=== PATIENT | female | born 1985 | race Caucasian/White ===

== ENCOUNTER 2020-08-31 06:04 | Outpatient (REF) | payer OTHER, SELFPAY | END 2020-08-31 06:05 | disposition home or self-care (01) | LOC: HO.HMGCLDS 06:04 | PROVIDERS: Visit Provider Internal Medicine | DX: Z20.828 Contact with and (suspected) exposure to other viral communicable diseases (principal) | CPT/HCPCS: C9803; U0003 ==

== ENCOUNTER 2020-11-16 06:12 | Outpatient (REF) | payer OTHER, SELFPAY ==
[2020-11-16 12:02] LABS: Free T4 (Free Thyroxine) 1.08 ng/dL (0.71-1.85); Thyroid Stimulating Hormone 2.65 uIU/mL (0.32-4.0)
== END 2020-11-16 06:13 | disposition home or self-care (01) ==
LOC: HO.HMGCLDS 06:12
PROVIDERS: PCP Internal Medicine; Visit Provider Internal Medicine
DX: E03.9 Hypothyroidism, unspecified (principal)
CPT/HCPCS: 36415; 84439; 84443

== ENCOUNTER 2021-05-22 14:23 | Outpatient (REF) | payer OTHER, SELFPAY ==
[2021-05-22 17:21] LABS: Free T4 (Free Thyroxine) 1.03 ng/dL (0.71-1.85); Thyroid Stimulating Hormone 1.15 uIU/mL (0.32-4.0)
== END 2021-05-22 14:24 | disposition home or self-care (01) ==
LOC: HO.HMGCLDS 14:23
PROVIDERS: PCP Internal Medicine; Visit Provider Internal Medicine
DX: E03.9 Hypothyroidism, unspecified (principal)
CPT/HCPCS: 36415; 84439; 84443

== ENCOUNTER 2021-10-09 07:53 | Outpatient (REF) | payer OTHER, SELFPAY ==
[2021-10-09 11:25] LABS: MANUAL DIFF FLAG NO
[2021-10-09 11:29] LABS: Basophils Absolute Auto 0.1 X10*3/uL (0.0-0.2); Basophils Percent Auto 0.8 % (0-2); Eosinophils Absolute Auto 0.3 X10*3/uL (0.0-0.4); Eosinophils Percent Auto 4.3 % (0-4); Hematocrit 37.9 % (37.0-47.0); Hemoglobin 12.5 g/dl (12.0-16.0); Imm Gran Abs Auto 0.01 X10*3/uL (0.00-0.03); Imm Gran Pct Auto 0.1 % (0.0-0.4); Lymphocytes Percent Auto 38.4 % (20-40); Mean Corpuscular Hemoglobin 29.3 pg (27.0-33.0); Mean Corpuscular Volume 88.8 fL (80.0-98.0); Mean Platelet Volume 10.2 fL (9.4-12.3); Monocytes Absolute Auto 0.4 X10*3/uL (0.1-1.2); Neutrophils Percent Auto 51.4 % (45-73); Platelet Count 370 X10*3/uL (160-400); Red Blood Count 4.27 X10*6/uL (4.20-5.50); Red Cell Distribution Width 12.6 % (11.0-16.0); White Blood Count 7.8 X10*3/uL (4.8-10.8)
[2021-10-09 12:00] LABS: Anion Gap 12 (12-20); Blood Urea Nitrogen 10 mg/dL (9-16); Calcium 9.2 mg/dL (8.4-10.2); Carbon Dioxide 24 mmol/L (22-29); Chloride 108 mmol/L (96-108); Cholesterol 182 mg/dL; Estimated Glomerular Filt Rate > 60; Glucose Fasting 84 mg/dL (60-99); HDL Cholesterol 78 mg/dL; LDL Cholesterol Calculated 73 mg/dl; Potassium 4.6 mmol/L (3.3-5.1); Sodium 139 mmol/L (135-145); Triglycerides 155 mg/dL
[2021-10-09 12:08] LABS: Free T4 (Free Thyroxine) 0.95 ng/dL (0.71-1.85); Thyroid Stimulating Hormone 1.76 uIU/mL (0.32-4.0); Vitamin D 25-OH Total 29.7 ng/mL (>30)
== END 2021-10-09 07:54 | disposition home or self-care (01) ==
LOC: HO.HMGCLDS 07:53
PROVIDERS: Physician Assistant Medical; PCP Internal Medicine; Visit Provider Internal Medicine
DX: Z00.01 Encounter for general adult medical examination with abnormal findings (principal); J01.90 Acute sinusitis, unspecified; E03.9 Hypothyroidism, unspecified; Z20.822 Contact with and (suspected) exposure to COVID-19
CPT/HCPCS: 36415; 80048; 80061; 82306; 84439; 84443; 85025; 87071; U0003; U0005

== ENCOUNTER 2022-09-13 11:51 | Outpatient (REF) | payer OTHER, SELFPAY ==
[2022-09-13 12:03] LABS: Binax Internal Control QC Valid; Binax Now Covid-19 Ag Positive (Negative); Binax Performed by: HO.BONILM
== END 2022-09-13 11:52 | disposition home or self-care (01) ==
LOC: HO.HMGCLDS 11:51
PROVIDERS: PCP Internal Medicine; Visit Provider Physician Assistant
DX: Z20.822 Contact with and (suspected) exposure to COVID-19 (principal)
CPT/HCPCS: 87811; C9803

== ENCOUNTER 2023-04-09 15:14 | Outpatient (AMB) | payer OTHER, SELFPAY ==
--- NOTE | 2023-04-09 15:43 | MHC.PC.OV ---
Vital Signs 04/09/23 15:47 Height 5 ft 6 in Weight 223 lb BMI 36.0 BP 100/66 Blood Pressure Location Rt brachial Position Sitting Pulse 71 Pulse Source Pulse Oximeter Pulse Oximetry (%) 99 Oxygen Delivery Method Room Air Intake Visit Reasons: Med review Intake Note: Pt is here today to request rx for cetrizine: Pt is also c/o sinus pressure Allergies peanut Allergy (Unknown, Verified 07/03/23 08:56) Anaphylaxis tree nut Allergy (Unknown, Verified 07/03/23 08:56) Anaphylaxis Medication List - Last Reconciled 04/09/23 by Nery Ho MD cabergoline 2.5 mg PO QWEEK cetirizine 10 mg PO BEDTIME PRN cholecalciferol (vitamin D3) 50 mcg PO DAILY desogestrel-ethinyl estradiol 0.15-0.03 mg 1 tab PO DAILY folic acid 1 mg PO DAILY levothyroxine 75 mcg PO QAM methotrexate sodium 15 mg PO QWEEK multivitamin 1 tab PO DAILY Saccharomyces boulardii (Daily Probiotic (S. boulardii)) 250 mg PO BID vitamin B complex (B Complex-Vitamin B12 tablet) 1 tab PO DAILY Tobacco use date assessed: 04/09/23 Dental Screening Dental Screen Date: 04/09/23 Did you have a dental visit in the last 12 months?: Yes Did you have a dental problem in the last 6 months where you did not have access to dental care?: No Was dental information given to patient?: Patient has dentist HPI Med review HPI Details 37-year-old lady here today complaining of frontal headaches and nasal congestion with pressure over sinuses mainly on both maxillary areas. She currently takes cetirizine 10 mg at bedtime as needed which has been helping, but only temporarily. Denies any fever, chills, or shortness of breath. She also has acquired hypothyroidism, on levothyroxine 75 mcg daily in a.m., due for follow-up. Patient states she has been feeling well on current dose [facility] Medical History (Updated 07/16/23 @ 18:19 by Nery Ho MD) Uveitis of left eye Pituitary adenoma Anaphylactic reaction due to tree nuts and seeds Environmental and seasonal allergies Nut allergy Acquired hypothyroidism Acute anterior uveitis of left eye Ankylosing spondylitis Spondyloarthropathy HLA B27 positive Acute sinusitis with coexisting condition, need prophylactic treatment Surgical History History of left cataract surgery Family History Father Essential hypertension Bipolar disorder Mental health disorder Mother Essential hypertension Rheumatoid arthritis Cholelithiasis Maternal Grandmother Breast cancer Brother Asthma Maternal Grandfather Glioblastoma Brain cancer Paternal Grandfather Colon cancer Diabetes Social History Housing: Apartment Alcohol intake: current Patient Tobacco Use Status: Never used Tobacco e-Cigarette/Vaping Use: Never Used service: No Current occupational status: employed Cognitive needs: No Hearing needs: No Vision needs: Yes Questionnaire PHQ-9 Over the last 2 weeks, how often have you been bothered by any of the following problems? 1. Little interest or pleasure in doing things: not at all 2. Feeling down, depressed, or hopeless: not at all 3. Trouble falling or staying asleep, or sleeping too much: not at all 4. Feeling tired or having little energy: not at all 5. Poor appetite or overeating: not at all 6. Feeling bad about yourself - or that you are a failure or have let yourself or your family down: not at all 7. Trouble concentrating on things, such as reading the newspaper or watching television: not at all 8. Moving or speaking so slowly that other people could have noticed. Or the opposite - being so fidgety or restless that you have been moving around a lot more than usual: not at all 9. Thoughts that you would be better off or of hurting yourself in some way: not at all Total score: 0 Depression Screening Interpretation: Negative 26744 - PHQ-9 Billing: Yes Source: Developed by Drs. Dmitry Cruz, Carli Maravilla, Baldemar Gamez and colleagues, with an educational glen from [employer]. Thrive Questionnaire Date Thrive assessed: 04/09/23 I am a: Patient What is your living situation today?: I have a steady place to live Within the past 12 months, did the food you bought not last and you didn't have the money to get more?: Never true Within the past 12 months, did you worry whether your food would run out before you got money to buy more?: Never true Do you have trouble paying for medicines?: No Do you have trouble getting transportation to medical appointments?: No Do you have trouble paying your heating and electricity bill?: No Do you have trouble taking care of your child, family member or friend?: No Do you have trouble with day-to-day activities such as bathing, preparing meals, shopping, managing finances, etc.?: No Are you currently unemployed and looking for a job?: No Are you interested in more education?: No Please select the resources that you would like help with: None AUDIT C Alcohol Use Questionnaire (AUDIT-C) 1. How often do you have a drink containing alcohol?: Monthly or less 2. How many drinks containing alcohol do you have on a typical day when you are drinking?: 1 or 2 3. How often do you have six or more drinks on one occasion?: Never Total Score: 1 RACHEL-7 AMB Questionnaire RACHEL-7 Date RACHEL - 7 assessed: 04/09/23 Feeling nervous, anxious, or on edge: 1 = Several days Not being able to stop or control worryin = Several days Worrying too much about different things: 2 = More than half the days Trouble relaxin = More than half the days Being so restless that it is hard to sit still: 2 = More than half the days Becoming easily annoyed or irritable: 1 = Several days Feeling afraid as if something awful might happen: 1 = Several days Total RACHEL-7 score (0-4 normal; 5-9 mild; 10-14 moderate; 15-21 severe): 10 Source: Developed by Drs. Dmitry Cruz, Carli Maravilla, Baldemar Gamez and colleagues, with an educational glen from [employer]. RACHEL-7 Assessment Billing RACHEL-7 Assessment Tool: RACHEL-7 Assessment 98498 Review of Systems Const Reports as per HPI and Reports no additional complaints ENT Denies change in voice, Denies dysphagia, Denies dizziness, Denies hoarseness and Denies epistaxis Card Reports no additional complaints Resp Reports no additional complaints GI Denies dysphagia Musc Reports no additional complaints Neuro Denies dizziness Endo Reports no additional complaints Physical exam (Primary Care) Vital Signs: Last Vital Signs Pulse 71 04/09/23 15:47 BP 100/66 04/09/23 15:47 Pulse Ox 99 04/09/23 15:47 Oxygen Delivery Method Room Air 04/09/23 15:47 BMI result Body Mass Index 36.0 Tobacco/Smoking Status: Tobacco use Status Tobacco use date assessed 04/09/23 04/09/23 15:54 Patient Tobacco Use Status Never used Tobacco 04/09/23 15:44 e-Cigarette/Vaping Use Never Used 04/09/23 15:44 PHQ-9: PHQ-9 Score PHQ-9: Total score 0 04/09/23 16:24 Depression Screening Interpretation: Negative Thrive Assessment: Date of Thrive Assessment Date Thrive assessed 04/09/23 04/09/23 15:54 Const Other: Alert oriented x3, no acute distress noted, ambulatory normal gait HENMT General nose exam: Normal external nose present and Abnormal mucous membranes and turbinates present erythematous bilateral Face and sinus: Yes sinus tenderness (Maxillary area) Eyes General: appearance normal, both eyes and all related structures Neck Other: Supple with no lymphadenopathy, thyroid gland nonpalpable Resp Auscultation: clear to auscultation bilaterally Cardio Other: S1-S2 present regular rate and rhythm Assessment and Plan Assessment & Plan (1) Sinusitis, acute: Code(s): J01.90 - Acute sinusitis, unspecified Qualifiers: Sinusitis location: maxillary Recurrence: non-recurrent Qualified Code(s): J01.00 - Acute maxillary sinusitis, unspecified Plan: Prescription sent for azithromycin , to take as directed (2) Environmental and seasonal allergies: Code(s): J30.89 - Other allergic rhinitis Plan: Continue cetirizine (3) Acquired hypothyroidism: Code(s): E03.9 - Hypothyroidism, unspecified Plan: Check TSH and free T4, in the meantime continue with current dose of levothyroxine Orders: Orders Thyroid Stimulating Hormone 04/09/23 E03.9 - Hypothyroidism, unspecified Free T4 (Free Thyroxine) 3 Months E03.9 - Hypothyroidism, unspecified Medications: New azithromycin For 250 mg dose pack: take 500 mg today (day 1), then 250 mg for 4 days (days 2-5) PO 6 tabs 0RF Refilled cetirizine 10 mg PO BEDTIME PRN 90 tabs 2RF for allergies Coding Level of Care Code Est Pt Level 3 (92062) Diagnoses Acute non-recurrent maxillary sinusitis J01.00 Sinusitis location: maxillary Recurrence: non-recurrent Environmental and seasonal allergies J30.89 Acquired hypothyroidism E03.9 Additional Codes RACHEL-7 Assessment Billing - RACHEL-7 Assessment Tool: RACHEL-7 Assessment 48820 ([id number])
[2023-04-09 15:47] VITALS: BP 100/66; PULSE 71; O2SAT 99; BMI 36.0
== END 2023-04-09 16:34 | disposition home or self-care (01) ==
PROVIDERS: PCP Internal Medicine; Visit Provider Internal Medicine
DX: J01.00 Acute maxillary sinusitis, unspecified (principal); J30.89 Other allergic rhinitis; E03.9 Hypothyroidism, unspecified
CPT/HCPCS: 99213

== ENCOUNTER 2023-04-17 08:04 | Outpatient (REF) | payer OTHER, SELFPAY ==
[2023-04-17 12:42] LABS: Thyroid Stimulating Hormone 1.57 uIU/mL (0.32-4.0)
== END 2023-04-17 08:05 | disposition home or self-care (01) ==
LOC: HO.HMGCLDS 08:04
PROVIDERS: PCP Internal Medicine; Visit Provider Internal Medicine
DX: E03.9 Hypothyroidism, unspecified (principal)
CPT/HCPCS: 36415; 84443

== ENCOUNTER 2023-07-03 08:20 | Outpatient (AMB) | payer OTHER, SELFPAY ==
--- NOTE | 2023-07-03 08:29 | MHC.PC.OV ---
Vital Signs 07/03/23 08:33 Height 5 ft 6 in Weight 229 lb BMI 37.0 BP 118/78 Blood Pressure Location Lt brachial Position Sitting Pulse 76 Pulse Source Pulse Oximeter Pulse Oximetry (%) 98 Oxygen Delivery Method Room Air Intake Visit Reasons: Physical exam Intake Note: patient is here today for her PE Is last menstrual period known: Yes Allergies peanut Allergy (Unknown, Verified 07/03/23 08:56) Anaphylaxis tree nut Allergy (Unknown, Verified 07/03/23 08:56) Anaphylaxis Medication List - Last Reconciled 07/03/23 by Nery Ho MD cabergoline 2.5 mg PO QWEEK cetirizine 10 mg PO BEDTIME PRN cholecalciferol (vitamin D3) 50 mcg PO DAILY desogestrel-ethinyl estradiol 0.15-0.03 mg 1 tab PO DAILY folic acid 1 mg PO DAILY levothyroxine 75 mcg PO QAM methotrexate sodium 15 mg PO QWEEK multivitamin 1 tab PO DAILY Saccharomyces boulardii (Daily Probiotic (S. boulardii)) 250 mg PO BID Tobacco use date assessed: 07/03/23 Dental Screening Dental Screen Date: 07/03/23 Did you have a dental visit in the last 12 months?: Yes Did you have a dental problem in the last 6 months where you did not have access to dental care?: No Was dental information given to patient?: Patient has dentist HPI Physical exam HPI Details 37-year-old lady here today for physical exam. She goes to see [facility], for her routine Pap and pelvic exam, had it done earlier this year with normal findings. [facility] Medical History (Updated 07/03/23 @ 09:18 by Nery Ho MD) Uveitis of left eye Pituitary adenoma Anaphylactic reaction due to tree nuts and seeds Environmental and seasonal allergies Nut allergy Acquired hypothyroidism Acute anterior uveitis of left eye Ankylosing spondylitis Spondyloarthropathy HLA B27 positive Acute sinusitis with coexisting condition, need prophylactic treatment Surgical History History of left cataract surgery Family History (Updated 07/03/23 @ 09:25 by Nery Ho MD) Father Essential hypertension Bipolar disorder Mental health disorder Mother Essential hypertension Rheumatoid arthritis Cholelithiasis Sister Asthma Maternal Grandmother Breast cancer Social History Housing: Apartment Alcohol intake: current Patient Tobacco Use Status: Never used Tobacco e-Cigarette/Vaping Use: Never Used service: No Current occupational status: employed Cognitive needs: No Hearing needs: No Vision needs: Yes Questionnaire PHQ-9 Over the last 2 weeks, how often have you been bothered by any of the following problems? 1. Little interest or pleasure in doing things: not at all 2. Feeling down, depressed, or hopeless: not at all 3. Trouble falling or staying asleep, or sleeping too much: several days 4. Feeling tired or having little energy: more than half the days 5. Poor appetite or overeating: several days 6. Feeling bad about yourself - or that you are a failure or have let yourself or your family down: several days 7. Trouble concentrating on things, such as reading the newspaper or watching television: not at all 8. Moving or speaking so slowly that other people could have noticed. Or the opposite - being so fidgety or restless that you have been moving around a lot more than usual: not at all 9. Thoughts that you would be better off or of hurting yourself in some way: not at all Total score: 5 Depression Screening Interpretation: Negative 31975 - PHQ-9 Billing: Yes Source: Developed by Drs. Dmitry Cruz, Carli Maravilla, Baldemar Gamez and colleagues, with an educational glen from [employer]. Thrive Questionnaire Date Thrive assessed: 07/03/23 I am a: Patient What is your living situation today?: I have a steady place to live Within the past 12 months, did the food you bought not last and you didn't have the money to get more?: Never true Within the past 12 months, did you worry whether your food would run out before you got money to buy more?: Never true Do you have trouble paying for medicines?: No Do you have trouble getting transportation to medical appointments?: No Do you have trouble paying your heating and electricity bill?: No Do you have trouble taking care of your child, family member or friend?: No Do you have trouble with day-to-day activities such as bathing, preparing meals, shopping, managing finances, etc.?: No Are you currently unemployed and looking for a job?: No Are you interested in more education?: No AUDIT C Alcohol Use Questionnaire (AUDIT-C) 1. How often do you have a drink containing alcohol?: Monthly or less 2. How many drinks containing alcohol do you have on a typical day when you are drinking?: 1 or 2 3. How often do you have six or more drinks on one occasion?: Never Total Score: 1 RACHEL-7 AMB Questionnaire RACHEL-7 Date RACHEL - 7 assessed: 07/03/23 Feeling nervous, anxious, or on edge: 1 = Several days Not being able to stop or control worryin = Not at all Worrying too much about different things: 0 = Not at all Trouble relaxin = More than half the days Being so restless that it is hard to sit still: 1 = Several days Becoming easily annoyed or irritable: 1 = Several days Feeling afraid as if something awful might happen: 0 = Not at all Total RACHEL-7 score (0-4 normal; 5-9 mild; 10-14 moderate; 15-21 severe): 5 Source: Developed by Drs. Dmitry Cruz, Carli Maravilla, Baldemar Gamez and colleagues, with an educational glen from [employer]. RACHEL-7 Assessment Billing RACHEL-7 Assessment Tool: RACHEL-7 Assessment 07748 Review of Systems Const Denies body aches, Denies chills, Denies difficulty sleeping, Denies fatigue, Denies headache(s), Denies lethargy and Denies malaise Eyes Details: followed by Dr. Richardson Reports no additional complaints ENT Reports Normal hearing present, Denies dizziness, Denies headache(s), Denies post nasal drip, Denies sinus pain and Denies sore throat Card Denies chest pain and Denies irregular heart rhythm Resp Denies chest congestion, Denies cough, Denies pain on inspiration and Denies wheezing GI Denies change in bowel habits and Denies heartburn Denies abnormal menses Musc Reports myalgias, Reports arthralgias and Denies joint swelling Skin/Breast Denies breast swelling, Denies breast pain, Denies breast mass and Denies rash Neuro Reports Normal hearing present, Denies dizziness, Denies headache(s) and Denies Sensory deficit (Neuro) Psych Reports no additional complaints Endo Denies fatigue Billy/Lymph Reports no additional complaints Aller/Immun Denies wheezing Physical exam (Primary Care) Vital Signs: Last Vital Signs Pulse 76 07/03/23 08:33 BP 118/78 07/03/23 08:33 Pulse Ox 98 07/03/23 08:33 Oxygen Delivery Method Room Air 07/03/23 08:33 BMI result Body Mass Index 37.0 Tobacco/Smoking Status: Tobacco use Status Tobacco use date assessed 07/03/23 07/03/23 08:30 Patient Tobacco Use Status Never used Tobacco 07/03/23 08:30 e-Cigarette/Vaping Use Never Used 07/03/23 08:30 PHQ-9: PHQ-9 Score PHQ-9: Total score 5 07/03/23 09:27 Depression Screening Interpretation: Negative Thrive Assessment: Date of Thrive Assessment Date Thrive assessed 07/03/23 07/03/23 08:50 Const General: cooperative, no acute distress and alert Orientation/consciousness: patient oriented x3 HENMT Head: Yes normal to inspection, Yes normocephalic and Yes atraumatic Ears: hearing grossly normal bilaterally, external ears normal, TM's normal bilaterally and EAC's normal General nose exam: Normal external nose present, Normal nasal mucous membranes and turbinates present and No nasal discharge present Face and sinus: Yes normal facial exam, Yes sinuses nontender and Yes face symmetric Mouth: Normal oral and palatal mucosa present, tongue normal, oropharynx normal and moist mucous membranes Eyes Conjunctivae: conjunctivae normal Sclerae: sclerae normal Pupils: Equal, round and reactive pupils present EOM: EOMs intact bilaterally Neck Neck: Yes full ROM and Yes no lymphadenopathy Thyroid: Thyroid normal Carotids: normal carotid upstroke Chest Chest palpation & inspection: normal inspection of the chest Breast/axilla palpation: normal palpation of the breasts Resp Effort & Inspection: normal respiratory effort and able to speak in complete sentences Auscultation: clear to auscultation bilaterally Cardio Jugular venous distension: no JVD Rate: regular rate Rhythm: regular rhythm Heart sounds: S1 normal heart sound present and S2 normal heart sound present GI Inspection: Yes normal to inspection Palpation (GI): Soft to palpation, nontender, no guarding and no masses Auscultation: normal bowel sounds General: Yes no CVA tenderness Back/Spine/Pelvis Back: no CVA tenderness and No back tenderness Skin General skin exam: no rashes or lesions noted Neuro General: patient oriented x3, gait normal, moves all extremities, no focal motor deficits and CN's II-XI intact bilaterally Cranial nerves: Yes Equal, round and reactive pupils present and Yes Normal hearing present Cognition (Neuro): normal cognition Gait exam (Neuro): Normal gait present Motor exam (neuro): 5/5 motor strength present throughout Sensory Exam: No Sensory deficit (Neuro) Extrem General: Yes normal to inspection, Yes full ROM, Yes no pedal edema and Yes normal gait Psych Appearance: grossly normal and well kempt Mental Status: mental status grossly normal Speech and movement: Normal speech and movement present Affect: normal affect Thought process: Normal thought process present Assessment and Plan Assessment & Plan (1) Annual visit for general adult medical examination with abnormal findings: Code(s): Z00.01 - Encounter for general adult medical examination with abnormal findings Plan: Will check appropriate labs. Recommended dental visit every 6 months and regular eye exams, at least every 2 years, currently being followed by Dr. Richardson for her uveitis Take adequate calcium in diet and vitamin-D 3 at 2000 IU per cap once a day, in addition to weight-bearing exercises to help maintain good muscle tone and weight control. Instructed to do self-breast exam, and recommended to get yearly mammogram, starting at age 40. Reminded to get her COVID booster and flu shot. (2) Anaphylactic reaction due to tree nuts and seeds: Code(s): T78.05XA - Anaphylactic reaction due to tree nuts and seeds, initial encounter (3) Pituitary adenoma: Code(s): D35.2 - Benign neoplasm of pituitary gland Plan: Currently on cabergoline, currently asymptomatic, referred to a new quality control microbiologist for follow-up, as her [facility] endocrine specialist has retired (4) HLA B27 positive: Comment: Followed by Dr. Mittal Code(s): Z15.89 - Genetic susceptibility to other disease Plan: Followed by Dr. Mittal (5) Ankylosing spondylitis: Comment: Followed by Dr. mittal Code(s): M45.9 - Ankylosing spondylitis of unspecified sites in spine Plan: Currently on methotrexate 15 mg weekly (6) Acquired hypothyroidism: Code(s): E03.9 - Hypothyroidism, unspecified Plan: Will check free T4 and TSH level, in the meantime continue levothyroxine 75 mcg daily in a.m. (7) Nut allergy: Comment: Seen and evaluated by surgical instrument maker Code(s): Z91.018 - Allergy to other foods Plan: Prescription sent for epinephrine (8) Environmental and seasonal allergies: Code(s): J30.89 - Other allergic rhinitis Plan: Takes cetirizine 10 mg bedtime as needed Orders: Orders Lipid Panel 07/03/23 D35.2 - Benign neoplasm of pituitary gland, E03.9 - Hypothyroidism, unspecified, H20.9 - Unspecified iridocyclitis, J30.89 - Other allergic rhinitis, M45.9 - Ankylosing spondylitis of unspecified sites in spine, M47.819 - Spondylosis without myelopathy or radiculopathy, site unspecified, T78.05XA - Anaphylactic reaction due to tree nuts and seeds, initial encounter, Z00.01 - Encounter for general adult medical examination with abnormal findings, Z15.89 - Genetic susceptibility to other disease, Z91.018 - Allergy to other foods Vitamin D 25-OH Total 07/03/23 D35.2 - Benign neoplasm of pituitary gland, E03.9 - Hypothyroidism, unspecified, H20.9 - Unspecified iridocyclitis, J30.89 - Other allergic rhinitis, M45.9 - Ankylosing spondylitis of unspecified sites in spine, M47.819 - Spondylosis without myelopathy or radiculopathy, site unspecified, T78.05XA - Anaphylactic reaction due to tree nuts and seeds, initial encounter, Z00.01 - Encounter for general adult medical examination with abnormal findings, Z15.89 - Genetic susceptibility to other disease, Z91.018 - Allergy to other foods Free T4 (Free Thyroxine) 3 Months D35.2 - Benign neoplasm of pituitary gland, E03.9 - Hypothyroidism, unspecified, H20.9 - Unspecified iridocyclitis, J30.89 - Other allergic rhinitis, M45.9 - Ankylosing spondylitis of unspecified sites in spine, M47.819 - Spondylosis without myelopathy or radiculopathy, site unspecified, T78.05XA - Anaphylactic reaction due to tree nuts and seeds, initial encounter, Z00.01 - Encounter for general adult medical examination with abnormal findings, Z15.89 - Genetic susceptibility to other disease, Z91.018 - Allergy to other foods Complete Blood Count Auto Diff 07/03/23 D35.2 - Benign neoplasm of pituitary gland, E03.9 - Hypothyroidism, unspecified, H20.9 - Unspecified iridocyclitis, J30.89 - Other allergic rhinitis, M45.9 - Ankylosing spondylitis of unspecified sites in spine, M47.819 - Spondylosis without myelopathy or radiculopathy, site unspecified, T78.05XA - Anaphylactic reaction due to tree nuts and seeds, initial encounter, Z00.01 - Encounter for general adult medical examination with abnormal findings, Z15.89 - Genetic susceptibility to other disease, Z91.018 - Allergy to other foods UA CC w/rflx Micro + Cult 07/03/23 D35.2 - Benign neoplasm of pituitary gland, E03.9 - Hypothyroidism, unspecified, H20.9 - Unspecified iridocyclitis, J30.89 - Other allergic rhinitis, M45.9 - Ankylosing spondylitis of unspecified sites in spine, M47.819 - Spondylosis without myelopathy or radiculopathy, site unspecified, T78.05XA - Anaphylactic reaction due to tree nuts and seeds, initial encounter, Z00.01 - Encounter for general adult medical examination with abnormal findings, Z15.89 - Genetic susceptibility to other disease, Z91.018 - Allergy to other foods Thyroid Stimulating Hormone 07/03/23 D35.2 - Benign neoplasm of pituitary gland, E03.9 - Hypothyroidism, unspecified, H20.9 - Unspecified iridocyclitis, J30.89 - Other allergic rhinitis, M45.9 - Ankylosing spondylitis of unspecified sites in spine, M47.819 - Spondylosis without myelopathy or radiculopathy, site unspecified, T78.05XA - Anaphylactic reaction due to tree nuts and seeds, initial encounter, Z00.01 - Encounter for general adult medical examination with abnormal findings, Z15.89 - Genetic susceptibility to other disease, Z91.018 - Allergy to other foods Comprehensive [place]. Panel Fast 07/03/23 D35.2 - Benign neoplasm of pituitary gland, E03.9 - Hypothyroidism, unspecified, H20.9 - Unspecified iridocyclitis, J30.89 - Other allergic rhinitis, M45.9 - Ankylosing spondylitis of unspecified sites in spine, M47.819 - Spondylosis without myelopathy or radiculopathy, site unspecified, T78.05XA - Anaphylactic reaction due to tree nuts and seeds, initial encounter, Z00.01 - Encounter for general adult medical examination with abnormal findings, Z15.89 - Genetic susceptibility to other disease, Z91.018 - Allergy to other foods Referrals Endocrinology Referral D35.2 - Benign neoplasm of pituitary gland, E03.9 - Hypothyroidism, unspecified Medications: New epinephrine (EpiPen 2-[place]) 0.3 mg (0.3 mL) IM Q4H PRN 2 ea 0RF anaphylaxis T78.05XA - Anaphylactic reaction due to tree nuts and seeds, initial encounter, Z91.018 - Allergy to other foods Coding Level of Care Code Est Pt Prev Care 18-39y(14222) Diagnoses Annual visit for general adult medical examination with abnormal findings Z00.01 Anaphylactic reaction due to tree nuts and seeds T78.05XA Pituitary adenoma D35.2 HLA B27 positive Z15.89 Ankylosing spondylitis M45.9 Acquired hypothyroidism E03.9 Nut allergy Z91.018 Environmental and seasonal allergies J30.89 Additional Codes RACHEL-7 Assessment Billing - RACHEL-7 Assessment Tool: RACHEL-7 Assessment 71592 ([id number])
[2023-07-03 08:33] VITALS: BP 118/78; PULSE 76; O2SAT 98; BMI 37.0
== END 2023-07-03 09:28 | disposition home or self-care (01) ==
PROVIDERS: Visit Provider Internal Medicine
DX: Z00.01 Encounter for general adult medical examination with abnormal findings (principal); D35.2 Benign neoplasm of pituitary gland; M45.9 Ankylosing spondylitis of unspecified sites in spine; E03.9 Hypothyroidism, unspecified; Z91.018 Allergy to other foods; T78.05XA Anaphylactic reaction due to tree nuts and seeds, initial encounter; Z15.89 Genetic susceptibility to other disease; J30.89 Other allergic rhinitis
CPT/HCPCS: 99395

== ENCOUNTER 2023-10-16 07:37 | Outpatient (REF) | payer OTHER, SELFPAY ==
[2023-10-16 11:21] LABS: Appearance Urine Clear; Color Urine Yellow; Glucose Urine UA Negative (Negative); Leukocyte Esterase Urine Trace (Negative); Nitrite Urine Negative (Negative); Specific Gravity - Urine 1.025 (1.005-1.025); UMIC TRIGGER UACC YES; Urine Blood Moderate (2+) (Negative); Urine Ketones Negative (Negative); Urine Protein Negative (Neg-Trace)
[2023-10-16 11:44] LABS: Bacteria Urine None Seen (None Seen); Hyaline Casts Urine 0-2 /LPF (0-2); Squamous Epithelial Cell Urine 0-2 /HPF (0-2); UACC Culture Trigger YES
== END 2023-10-16 07:38 | disposition home or self-care (01) ==
LOC: HO.HMGCLDS 07:37
PROVIDERS: PCP Internal Medicine; Visit Provider Internal Medicine
DX: Z00.01 Encounter for general adult medical examination with abnormal findings (principal); D35.2 Benign neoplasm of pituitary gland; T78.05XA Anaphylactic reaction due to tree nuts and seeds, initial encounter; Z15.89 Genetic susceptibility to other disease; M47.819 Spondylosis without myelopathy or radiculopathy, site unspecified; M45.9 Ankylosing spondylitis of unspecified sites in spine; E03.9 Hypothyroidism, unspecified; Z91.018 Allergy to other foods; J30.89 Other allergic rhinitis; H20.9 Unspecified iridocyclitis; R82.90 Unspecified abnormal findings in urine
CPT/HCPCS: 36415; 80053; 80061; 81001; 82306; 84439; 84443; 85025; 87086

== ENCOUNTER → 2024-02-29 16:53 | Outpatient (AMB) | payer OTHER, SELFPAY ==
--- NOTE | 2024-02-29 13:30 | A.OFFPC_ITS ---
Intake Visit Reasons: f/u anxiety & depression andriod [phone] Allergies peanut Allergy (Unknown, Verified 02/29/24 13:31) Anaphylaxis tree nut Allergy (Unknown, Verified 02/29/24 13:31) Anaphylaxis Tobacco use date assessed: 02/29/24 Dental Screening Dental Screen Date: 07/03/23 [facility] Medical History (Updated 07/16/23 @ 18:19 by Nery Ho MD) Uveitis of left eye Pituitary adenoma Anaphylactic reaction due to tree nuts and seeds Environmental and seasonal allergies Nut allergy Acquired hypothyroidism Acute anterior uveitis of left eye Ankylosing spondylitis Spondyloarthropathy HLA B27 positive Acute sinusitis with coexisting condition, need prophylactic treatment Surgical History History of left cataract surgery Family History Father Essential hypertension Bipolar disorder Mental health disorder Mother Essential hypertension Rheumatoid arthritis Cholelithiasis Maternal Grandmother Breast cancer Brother Asthma Maternal Grandfather Glioblastoma Brain cancer Paternal Grandfather Colon cancer Diabetes Social History Housing: Apartment Alcohol intake: current Patient Tobacco Use Status: Never used Tobacco e-Cigarette/Vaping Use: Never Used service: No Current occupational status: employed Cognitive needs: No Hearing needs: No Vision needs: Yes Questionnaire Thrive Questionnaire Date Thrive assessed: 07/03/23 RACHEL-7 AMB Questionnaire RACHEL-7 Date RACHEL - 7 assessed: 07/03/23 Source: Developed by Drs. Dmitry Cruz, Carli Maravilla, Baldemar Gamez and colleagues, with an educational glen from [employer]. Physical exam (Primary Care) Tobacco/Smoking Status: Tobacco use Status Tobacco use date assessed 07/03/23 07/03/23 08:30 Patient Tobacco Use Status Never used Tobacco 07/03/23 08:30 e-Cigarette/Vaping Use Never Used 07/03/23 08:30 Thrive Assessment: Date of Thrive Assessment Date Thrive assessed 07/03/23 07/03/23 08:50 Coding
--- NOTE | 2024-02-29 16:56 | MHC.PC.OV ---
Intake Visit Reasons: f/u anxiety & depression andriod [phone] Allergies peanut Allergy (Unknown, Verified 02/29/24 16:56) Anaphylaxis tree nut Allergy (Unknown, Verified 02/29/24 16:56) Anaphylaxis Tobacco use date assessed: 02/29/24 Dental Screening Dental Screen Date: 02/29/24 Did you have a dental visit in the last 12 months?: Yes Did you have a dental problem in the last 6 months where you did not have access to dental care?: No Was dental information given to patient?: Patient has dentist [facility] Medical History (Updated 07/16/23 @ 18:19 by Nery Ho MD) Uveitis of left eye Pituitary adenoma Anaphylactic reaction due to tree nuts and seeds Environmental and seasonal allergies Nut allergy Acquired hypothyroidism Acute anterior uveitis of left eye Ankylosing spondylitis Spondyloarthropathy HLA B27 positive Acute sinusitis with coexisting condition, need prophylactic treatment Surgical History History of left cataract surgery Family History Father Essential hypertension Bipolar disorder Mental health disorder Mother Essential hypertension Rheumatoid arthritis Cholelithiasis Maternal Grandmother Breast cancer Brother Asthma Maternal Grandfather Glioblastoma Brain cancer Paternal Grandfather Colon cancer Diabetes Social History Housing: Apartment Alcohol intake: current Patient Tobacco Use Status: Never used Tobacco e-Cigarette/Vaping Use: Never Used service: No Current occupational status: employed Cognitive needs: No Hearing needs: No Vision needs: Yes Questionnaire PHQ-9 Over the last 2 weeks, how often have you been bothered by any of the following problems? 1. Little interest or pleasure in doing things: more than half the days 2. Feeling down, depressed, or hopeless: several days 3. Trouble falling or staying asleep, or sleeping too much: nearly every day 4. Feeling tired or having little energy: nearly every day 5. Poor appetite or overeating: more than half the days 6. Feeling bad about yourself - or that you are a failure or have let yourself or your family down: several days 7. Trouble concentrating on things, such as reading the newspaper or watching television: not at all 8. Moving or speaking so slowly that other people could have noticed. Or the opposite - being so fidgety or restless that you have been moving around a lot more than usual: not at all 9. Thoughts that you would be better off or of hurting yourself in some way: not at all Total score: 12 Depression Screening Interpretation: Positive Depression Screening Done: Yes 05053 - PHQ-9 Billing: Yes Source: Developed by Drs. Dmitry Cruz, Carli Maravilla, Baldemar Gamez and colleagues, with an educational glen from [employer]. Thrive Questionnaire Date Thrive assessed: 02/29/24 I am a: Patient What is your living situation today?: I have a steady place to live Within the past 12 months, did the food you bought not last and you didn't have the money to get more?: Never true Within the past 12 months, did you worry whether your food would run out before you got money to buy more?: Never true Do you have trouble paying for medicines?: No Do you have trouble getting transportation to medical appointments?: No Do you have trouble paying your heating and electricity bill?: No Do you have trouble taking care of your child, family member or friend?: No Do you have trouble with day-to-day activities such as bathing, preparing meals, shopping, managing finances, etc.?: No Are you currently unemployed and looking for a job?: No Are you interested in more education?: No Please select the resources that you would like help with: None Currently or been in a relationship where the following occur: no concerns reported THRIVE Score: 0 AUDIT C Alcohol Use Questionnaire (AUDIT-C) 1. How often do you have a drink containing alcohol?: Never 3. How often do you have six or more drinks on one occasion?: Never Total Score: 0 Score Reviewed/Action Taken: Yes RACHEL-7 AMB Questionnaire RACHEL-7 Date RACHEL - 7 assessed: 02/29/24 Feeling nervous, anxious, or on edge: 1 = Several days Not being able to stop or control worryin = Not at all Worrying too much about different things: 0 = Not at all Trouble relaxin = Several days Being so restless that it is hard to sit still: 0 = Not at all Becoming easily annoyed or irritable: 1 = Several days Feeling afraid as if something awful might happen: 0 = Not at all Total RACHEL-7 score (0-4 normal; 5-9 mild; 10-14 moderate; 15-21 severe): 3 Source: Developed by Drs. Dmitry Cruz, Carli Maravilla, Baldemar Gamez and colleagues, with an educational glen from [employer]. RACHEL-7 Assessment Billing RACHEL-7 Assessment Tool: RACHEL-7 Assessment 47160 Physical exam (Primary Care) Tobacco/Smoking Status: Tobacco use Status Tobacco use date assessed 07/03/23 07/03/23 08:30 Patient Tobacco Use Status Never used Tobacco 07/03/23 08:30 e-Cigarette/Vaping Use Never Used 07/03/23 08:30 Depression Screening Interpretation: Positive Thrive Assessment: Date of Thrive Assessment Date Thrive assessed 07/03/23 07/03/23 08:50 Currently or been in a relationship where the following occur: no concerns reported Coding Additional Codes RACHEL-7 Assessment Billing - RACHEL-7 Assessment Tool: RACHEL-7 Assessment 04522 ([id number])
--- NOTE | 2024-02-29 16:57 | MHC.PC.OV ---
Intake Visit Reasons: f/u anxiety & depression andriod [phone] Allergies peanut Allergy (Unknown, Verified 02/29/24 17:06) Anaphylaxis tree nut Allergy (Unknown, Verified 02/29/24 17:06) Anaphylaxis Medication List - Last Reconciled 02/29/24 by Nery Ho MD cabergoline 2.5 mg PO QWEEK cetirizine 10 mg PO BEDTIME PRN cholecalciferol (vitamin D3) 50 mcg PO DAILY desogestrel-ethinyl estradiol 0.15-0.03 mg 1 tab PO DAILY epinephrine (EpiPen 2-Molina) 0.3 mg (0.3 mL) IM Q4H PRN folic acid 1 mg PO DAILY levothyroxine 75 mcg PO QAM methotrexate sodium 15 mg PO QWEEK multivitamin 1 tab PO DAILY Saccharomyces boulardii (Daily Probiotic (S. boulardii)) 250 mg PO BID Tobacco use date assessed: 07/03/23 Dental Screening Dental Screen Date: 07/03/23 HPI f/u anxiety & depression andriod [phone] HPI Details Tele health visit made with 38-year-old lady here today complaining of having frequent episodes of low mood, and anhedonia accompanied by having frequent anxiety attacks, constantly worrying about little thing. Has been interfering with her day-to-day activities, having difficulty with keeping her focus , and also interfering with her sleep. [facility] [place] Medical History (Updated 02/29/24 @ 17:11 by Nery Ho MD) Mixed anxiety and depressive disorder Uveitis of left eye Pituitary adenoma Anaphylactic reaction due to tree nuts and seeds Environmental and seasonal allergies Nut allergy Acquired hypothyroidism Acute anterior uveitis of left eye Ankylosing spondylitis Spondyloarthropathy HLA B27 positive Acute sinusitis with coexisting condition, need prophylactic treatment Surgical History History of left cataract surgery Family History Father Essential hypertension Bipolar disorder Mental health disorder Mother Essential hypertension Rheumatoid arthritis Cholelithiasis Maternal Grandmother Breast cancer Brother Asthma Maternal Grandfather Glioblastoma Brain cancer Paternal Grandfather Colon cancer Diabetes Social History Housing: Apartment Alcohol intake: current Patient Tobacco Use Status: Never used Tobacco e-Cigarette/Vaping Use: Never Used service: No Current occupational status: employed Cognitive needs: No Hearing needs: No Vision needs: Yes Questionnaire PHQ-9 Over the last 2 weeks, how often have you been bothered by any of the following problems? 1. Little interest or pleasure in doing things: more than half the days 2. Feeling down, depressed, or hopeless: several days 3. Trouble falling or staying asleep, or sleeping too much: nearly every day 4. Feeling tired or having little energy: nearly every day 5. Poor appetite or overeating: more than half the days 6. Feeling bad about yourself - or that you are a failure or have let yourself or your family down: several days 7. Trouble concentrating on things, such as reading the newspaper or watching television: not at all 8. Moving or speaking so slowly that other people could have noticed. Or the opposite - being so fidgety or restless that you have been moving around a lot more than usual: not at all 9. Thoughts that you would be better off or of hurting yourself in some way: not at all Total score: 12 Depression Screening Interpretation: Positive Depression Screening Follow-up: Existing condition, New Medication prescribed and Follow-up Visit Requested Depression Screening Done: Yes 78556 - PHQ-9 Billing: Yes Source: Developed by Drs. Dmitry Cruz, Carli Maravilla, Baldemar Gamez and colleagues, with an educational glen from [employer]. Thrive Questionnaire Date Thrive assessed: 02/29/24 I am a: Patient What is your living situation today?: I have a steady place to live Within the past 12 months, did the food you bought not last and you didn't have the money to get more?: Never true Within the past 12 months, did you worry whether your food would run out before you got money to buy more?: Never true Do you have trouble paying for medicines?: No Do you have trouble getting transportation to medical appointments?: No Do you have trouble paying your heating and electricity bill?: No Do you have trouble taking care of your child, family member or friend?: No Do you have trouble with day-to-day activities such as bathing, preparing meals, shopping, managing finances, etc.?: No Are you currently unemployed and looking for a job?: No Are you interested in more education?: No Please select the resources that you would like help with: None Currently or been in a relationship where the following occur: no concerns reported THRIVE Score: 0 AUDIT C Alcohol Use Questionnaire (AUDIT-C) 1. How often do you have a drink containing alcohol?: Never 3. How often do you have six or more drinks on one occasion?: Never Total Score: 0 Score Reviewed/Action Taken: Yes RACHEL-7 AMB Questionnaire RACHEL-7 Date RACHEL - 7 assessed: 02/29/24 Feeling nervous, anxious, or on edge: 1 = Several days Not being able to stop or control worryin = Not at all Worrying too much about different things: 0 = Not at all Trouble relaxin = Several days Being so restless that it is hard to sit still: 0 = Not at all Becoming easily annoyed or irritable: 1 = Several days Feeling afraid as if something awful might happen: 0 = Not at all Total RACHEL-7 score (0-4 normal; 5-9 mild; 10-14 moderate; 15-21 severe): 3 Source: Developed by Drs. Dmitry Cruz, Carli Maravilla, Baldemar Gamez and colleagues, with an educational glen from [employer]. RACHEL-7 Assessment Billing RACHEL-7 Assessment Tool: RACHEL-7 Assessment 60280 Review of Systems Const Denies body aches, Reports fatigue, Denies headache(s) and Reports lethargy Eyes Details: followed by Dr. Richardson Reports no additional complaints ENT Reports Normal hearing present, Denies dizziness, Denies headache(s), Denies post nasal drip, Denies sinus pain and Denies sore throat Card Denies chest pain and Denies irregular heart rhythm Resp Denies chest congestion, Denies cough, Denies pain on inspiration and Denies wheezing GI Denies change in bowel habits and Denies heartburn Denies abnormal menses Musc Reports myalgias, Reports arthralgias and Denies joint swelling Skin/Breast Denies breast swelling, Denies breast pain, Denies breast mass and Denies rash Neuro Reports Normal hearing present, Denies dizziness, Denies headache(s) and Denies Sensory deficit (Neuro) Psych Reports no additional complaints Endo Reports fatigue Billy/Lymph Reports no additional complaints Aller/Immun Denies wheezing Physical exam (Primary Care) Tobacco/Smoking Status: Tobacco use Status Tobacco use date assessed 07/03/23 02/29/24 17:08 Patient Tobacco Use Status Never used Tobacco 02/29/24 17:08 e-Cigarette/Vaping Use Never Used 02/29/24 17:08 PHQ-9: PHQ-9 Score PHQ-9: Total score 12 03/02/24 11:20 Depression Screening Interpretation: Positive Depression Screening Follow-up: Existing condition, New Medication prescribed and Follow-up Visit Requested Thrive Assessment: Date of Thrive Assessment Date Thrive assessed 02/29/24 02/29/24 17:11 Currently or been in a relationship where the following occur: no concerns reported Neuro Cranial nerves: Yes Normal hearing present Sensory Exam: No Sensory deficit (Neuro) Telehealth Telehealth Telehealth Platform: [email or web address] Location of provider rendering services: practice address Location of patient: address on file Patient Identification confirmed using: Name, : Yes Telehealth method: video Patient verbally consented to treatment: Yes Patient verbally consented to billing insurance company: Yes Patient informed of any privacy concerns related to visit: Yes Minutes spent on Phone/Video with Pt.: 15 Assessment and Plan Assessment & Plan (1) Mixed anxiety and depressive disorder: Code(s): F41.8 - Other specified anxiety disorders Plan: Will start her on escitalopram at 5 mg per tablet taken once a day either morning or evening depending on whether it makes her feel sleepy or not. Declines referral for counseling, will see her back for follow-up in 4 weeks after starting the medication Medications: New escitalopram oxalate 5 mg PO DAILY 30 tabs 1RF Coding Level of Care Code Tele Est Pt Level 4 (57127) Diagnoses Mixed anxiety and depressive disorder F41.8 Additional Codes RACHEL-7 Assessment Billing - RACHEL-7 Assessment Tool: RACHEL-7 Assessment 20482 ([id number])
== END ==
PROVIDERS: PCP Internal Medicine; Visit Provider Internal Medicine
DX: F41.8 Other specified anxiety disorders (principal)
CPT/HCPCS: 99214

== ENCOUNTER → 2024-04-04 16:42 | Outpatient (AMB) | payer OTHER, SELFPAY ==
--- NOTE | 2024-04-04 16:39 | A.OFFPC_ITS ---
Intake Visit Reasons: new med follow up Intake Note: Pt is having a Telehealth visit to f/u meds Allergies peanut Allergy (Unknown, Verified 04/04/24 17:10) Anaphylaxis tree nut Allergy (Unknown, Verified 04/04/24 17:10) Anaphylaxis Medication List - Last Reconciled 04/04/24 by Nery Ho MD buspirone 5 mg PO BID 3 months cabergoline 2.5 mg PO QWEEK cetirizine 10 mg PO BEDTIME PRN cholecalciferol (vitamin D3) 50 mcg PO DAILY desogestrel-ethinyl estradiol 0.15-0.03 mg 1 tab PO DAILY epinephrine (EpiPen 2-Molina) 0.3 mg (0.3 mL) IM Q4H PRN folic acid 1 mg PO DAILY levothyroxine 75 mcg PO QAM methotrexate sodium 15 mg PO QWEEK multivitamin 1 tab PO DAILY Saccharomyces boulardii (Daily Probiotic (S. boulardii)) 250 mg PO BID Tobacco use date assessed: 04/04/24 Dental Screening Dental Screen Date: 04/04/24 Did you have a dental visit in the last 12 months?: Yes Did you have a dental problem in the last 6 months where you did not have access to dental care?: Yes Was dental information given to patient?: Patient has dentist HPI new med follow up HPI Details 38-year-old lady here today for follow-u p on her anxiety disorder and depression. Stop taking escitalopram as it was giving her chest pain which resolved right away after 24 hours of discontinuing the medication. She is now taking buspirone 5 mg taken 1 tablet twice a day, which she states has been helping a lot with controlling her mood swings and anxiety attacks. She does report some problems initiating sleep when she takes the 2nd dose of BuSpar at night, and had to take melatonin to help her sleep at night.. [facility] Medical History Mixed anxiety and depressive disorder Uveitis of left eye Pituitary adenoma Anaphylactic reaction due to tree nuts and seeds Environmental and seasonal allergies Nut allergy Acquired hypothyroidism Acute anterior uveitis of left eye Ankylosing spondylitis Spondyloarthropathy HLA B27 positive Acute sinusitis with coexisting condition, need prophylactic treatment Surgical History History of left cataract surgery Family History Father Essential hypertension Bipolar disorder Mental health disorder Mother Essential hypertension Rheumatoid arthritis Cholelithiasis Maternal Grandmother Breast cancer Brother Asthma Maternal Grandfather Glioblastoma Brain cancer Paternal Grandfather Colon cancer Diabetes Social History Housing: Apartment Alcohol intake: current Patient Tobacco Use Status: Never used Tobacco e-Cigarette/Vaping Use: Never Used service: No Current occupational status: employed Cognitive needs: No Hearing needs: No Vision needs: Yes Questionnaire PHQ-9 Over the last 2 weeks, how often have you been bothered by any of the following problems? 1. Little interest or pleasure in doing things: not at all 2. Feeling down, depressed, or hopeless: not at all 3. Trouble falling or staying asleep, or sleeping too much: several days 4. Feeling tired or having little energy: not at all 5. Poor appetite or overeating: not at all 6. Feeling bad about yourself - or that you are a failure or have let yourself or your family down: not at all 7. Trouble concentrating on things, such as reading the newspaper or watching television: not at all 8. Moving or speaking so slowly that other people could have noticed. Or the opposite - being so fidgety or restless that you have been moving around a lot more than usual: not at all 9. Thoughts that you would be better off or of hurting yourself in some way: not at all Total score: 1 Depression Screening Interpretation: Negative (Controlled on buspirone 5 mg 1 tablet twice a day and sees a therapist once a week) Depression Screening Done: Yes 10746 - PHQ-9 Billing: Yes Source: Developed by Drs. Dmitry Cruz, Carli Maravilla, Baldemar Gamez and colleagues, with an educational glen from [employer]. Thrive Questionnaire Date Thrive assessed: 02/29/24 RACHEL-7 AMB Questionnaire RACHEL-7 Date RACHEL - 7 assessed: 04/04/24 Feeling nervous, anxious, or on edge: 0 = Not at all Not being able to stop or control worryin = Not at all Worrying too much about different things: 0 = Not at all Trouble relaxin = Not at all Being so restless that it is hard to sit still: 0 = Not at all Becoming easily annoyed or irritable: 0 = Not at all Feeling afraid as if something awful might happen: 0 = Not at all Total RACHEL-7 score (0-4 normal; 5-9 mild; 10-14 moderate; 15-21 severe): 0 Source: Developed by Drs. Dmitry Cruz, Carli Maravilla, Baldemar Gamez and colleagues, with an educational glen from [employer]. RACHEL-7 Assessment Billing RACHEL-7 Assessment Tool: RACHEL-7 Assessment 81853 Review of Systems Const Denies body aches and Denies headache(s) Eyes Details: followed by Dr. Richardson Reports no additional complaints ENT Denies dizziness and Denies headache(s) Card Denies chest pain and Denies irregular heart rhythm Resp Denies chest congestion, Denies cough, Denies pain on inspiration and Denies wheezing GI Denies change in bowel habits and Denies heartburn Musc Reports arthralgias and Denies joint swelling Skin/Breast Denies breast swelling, Denies breast pain, Denies breast mass and Denies rash Neuro Denies dizziness, Denies headache(s) and Denies Sensory deficit (Neuro) Psych Reports no additional complaints Billy/Lymph Reports no additional complaints Aller/Immun Denies wheezing Physical exam (Primary Care) Tobacco/Smoking Status: Tobacco use Status Tobacco use date assessed 04/04/24 04/04/24 16:41 Patient Tobacco Use Status Never used Tobacco 04/04/24 16:41 e-Cigarette/Vaping Use Never Used 04/04/24 16:41 Depression Screening Interpretation: Negative (Controlled on buspirone 5 mg 1 tablet twice a day and sees a therapist once a week) Thrive Assessment: Date of Thrive Assessment Date Thrive assessed 02/29/24 04/04/24 16:41 Neuro Sensory Exam: No Sensory deficit (Neuro) Telehealth Telehealth Telehealth Platform: [facility] Location of provider rendering services: practice address Location of patient: address on file Patient Identification confirmed using: Name, : Yes Telehealth method: video Patient verbally consented to treatment: Yes Patient verbally consented to billing insurance company: Yes Patient informed of any privacy concerns related to visit: Yes Minutes spent on Phone/Video with Pt.: 15 Assessment and Plan Assessment & Plan (1) Mixed anxiety and depressive disorder: Code(s): F41.8 - Other specified anxiety disorders Plan: Feels better on buspirone 5 mg per tablet taken twice a day. Patient advised to take her 2nd dose of buspirone earlier in the afternoon at around 3 or 4 pm to avoid it interfering with her sleep. She is also continuing with counseling sessions once a week. Coding Level of Care Code Tele Est Pt Level 3 (46041) Diagnoses Mixed anxiety and depressive disorder F41.8 Additional Codes RACHEL-7 Assessment Billing - RACHEL-7 Assessment Tool: RACHEL-7 Assessment 00404 ([id number])
== END ==
LOC: HO.HMGC 16:42
PROVIDERS: PCP Internal Medicine; Visit Provider Internal Medicine
DX: F41.8 Other specified anxiety disorders (principal)
CPT/HCPCS: 99213

== ENCOUNTER 2024-09-07 13:14 | Outpatient (AMB) | payer OTHER, SELFPAY ==
--- NOTE | 2024-09-07 13:15 | MHC.PC.OV ---
Vital Signs 09/07/24 13:18 Height 5 ft 6 in Weight 231 lb BMI 37.3 BP 104/70 Blood Pressure Location Lt brachial Position Sitting Pulse 81 Pulse Source Pulse Oximeter Pulse Oximetry (%) 98 Oxygen Delivery Method Room Air Intake Visit Reasons: PE Intake Note: Pt is here today for her PE Allergies peanut Allergy (Unknown, Verified 09/10/24 04:57) Anaphylaxis tree nut Allergy (Unknown, Verified 09/10/24 04:57) Anaphylaxis Medication List - Last Reconciled 09/07/24 by Nery Ho MD buspirone 5 mg PO BID 3 months cabergoline 2.5 mg PO QWEEK cetirizine 10 mg PO BEDTIME PRN cholecalciferol (vitamin D3) 50 mcg PO DAILY desogestrel-ethinyl estradiol 0.15-0.03 mg 1 tab PO DAILY epinephrine (EpiPen 2-Molina) 0.3 mg (0.3 mL) IM Q4H PRN folic acid 1 mg PO DAILY levothyroxine 75 mcg PO QAM methotrexate sodium 15 mg PO QWEEK multivitamin 1 tab PO DAILY Saccharomyces boulardii (Daily Probiotic (S. boulardii)) 250 mg PO BID Tobacco use date assessed: 09/07/24 Dental Screening Dental Screen Date: 09/07/24 Did you have a dental visit in the last 12 months?: Yes Did you have a dental problem in the last 6 months where you did not have access to dental care?: Yes Was dental information given to patient?: Patient has dentist HPI PE HPI Details The patient is a 38-year-old female with past medical history of acquired hypothyroidism, ankylosing spondylitis, Nut allergy and environmental and seasonal allergies, uveitis of left eye, history pituitary adenoma, mixed anxiety and depression, lichen amyloidosis, here today for a physical examination. She has a history of seasonal allergies, and nut allergy currently has an Epipen for severe allergy after ingesting walnuts, while almonds and pistachios cause milder symptoms like oral itching. Last fasting labs done in October this year showed elevated triglycerides which she attributes to possible holiday diet indiscretions, however, LDL cholesterol saw a marginal increase, and HDL cholesterol improved. Hypothyroidism is being treated with levothyroxine, with normal when last checked in October. Buspirone is used for anxiety with good clinical efficacy, and she's currently under psychiatric care with consistent medication refills. An immigration guard follows her for a pituitary adenoma, previously discovered after amenorrhea; hormone levels have since stabilized with no ongoing symptoms of imbalance. The patient also has a diagnosis of cutaneous amyloidosis, characterized by pigmentation changes on her legs due to skin inflammation and treated with topical steroids. Dermatology consultation confirmed this diagnosis. A family history reveals diabetes and heart disease. The patient's diet includes varied proteins and avoidance of excessive red meat. She goes to [facility] in [place] for her routine Pap and pelvic exam, last done 2022 with normal findings. [facility] Medical History (Updated 09/07/24 @ 14:19 by Nery Ho MD) Lichen amyloidosis Mixed anxiety and depressive disorder Uveitis of left eye Pituitary adenoma Anaphylactic reaction due to tree nuts and seeds Environmental and seasonal allergies Nut allergy Acquired hypothyroidism Acute anterior uveitis of left eye Ankylosing spondylitis Spondyloarthropathy HLA B27 positive Acute sinusitis with coexisting condition, need prophylactic treatment Surgical History History of left cataract surgery Family History Father Essential hypertension Bipolar disorder Mental health disorder Mother Essential hypertension Rheumatoid arthritis Cholelithiasis Maternal Grandmother Breast cancer Brother Asthma Maternal Grandfather Glioblastoma Brain cancer Paternal Grandfather Colon cancer Diabetes Social History Housing: Apartment Alcohol intake: current Patient Tobacco Use Status: Never used Tobacco e-Cigarette/Vaping Use: Never Used service: No Current occupational status: employed Cognitive needs: No Hearing needs: No Vision needs: Yes Female Reproductive History Menstrual Date of last pap smear: 01/08/23 Other: Goes to [facility] for her routine Pap and pelvic exam Questionnaire PHQ-9 Over the last 2 weeks, how often have you been bothered by any of the following problems? 1. Little interest or pleasure in doing things: not at all 2. Feeling down, depressed, or hopeless: not at all 3. Trouble falling or staying asleep, or sleeping too much: several days 4. Feeling tired or having little energy: several days 5. Poor appetite or overeating: several days 6. Feeling bad about yourself - or that you are a failure or have let yourself or your family down: not at all 7. Trouble concentrating on things, such as reading the newspaper or watching television: not at all 8. Moving or speaking so slowly that other people could have noticed. Or the opposite - being so fidgety or restless that you have been moving around a lot more than usual: not at all 9. Thoughts that you would be better off or of hurting yourself in some way: not at all Total score: 3 Depression Screening Interpretation: Negative Depression Screening Done: Yes 92448 - PHQ-9 Billing: Yes Source: Developed by Drs. Dmitry Cruz, Carli Maravilla, Baldemar Gamez and colleagues, with an educational glen from [employer]. Thrive Questionnaire Date Thrive assessed: 09/07/24 I am a: Patient What is your living situation today?: I have a steady place to live Within the past 12 months, did the food you bought not last and you didn't have the money to get more?: Never true Within the past 12 months, did you worry whether your food would run out before you got money to buy more?: Never true Do you have trouble paying for medicines?: No Do you have trouble getting transportation to medical appointments?: No Do you have trouble paying your heating and electricity bill?: No Do you have trouble taking care of your child, family member or friend?: No Do you have trouble with day-to-day activities such as bathing, preparing meals, shopping, managing finances, etc.?: No Are you currently unemployed and looking for a job?: No Are you interested in more education?: No Please select the resources that you would like help with: None Currently or been in a relationship where the following occur: No concerns reported THRIVE Score: 0 AUDIT C Alcohol Use Questionnaire (AUDIT-C) 1. How often do you have a drink containing alcohol?: Monthly or less 2. How many drinks containing alcohol do you have on a typical day when you are drinking?: 1 or 2 3. How often do you have six or more drinks on one occasion?: Never Total Score: 1 RACHEL-7 AMB Questionnaire RACHEL-7 Date RACHEL - 7 assessed: 09/07/24 Feeling nervous, anxious, or on edge: 1 = Several days Not being able to stop or control worryin = Several days Worrying too much about different things: 1 = Several days Trouble relaxin = Several days Being so restless that it is hard to sit still: 1 = Several days Becoming easily annoyed or irritable: 1 = Several days Feeling afraid as if something awful might happen: 0 = Not at all Total RACHEL-7 score (0-4 normal; 5-9 mild; 10-14 moderate; 15-21 severe): 6 Source: Developed by Drs. Dmitry Cruz, Carli Maravilla, Baldemar Gamez and colleagues, with an educational glen from [employer]. RACHEL-7 Assessment Billing RACHEL-7 Assessment Tool: RACHEL-7 Assessment 63463 Review of Systems Const Denies body aches and Denies headache(s) Eyes Details: followed by Dr. Richardson Reports no additional complaints, Reports blurry vision, Denies diplopia and Reports requires corrective lenses ENT Details: gets dental cleaning every 6 months Reports Normal hearing present, Denies dizziness and Denies headache(s) Card Denies chest pain and Denies irregular heart rhythm Resp Denies chest congestion, Denies cough, Denies pain on inspiration and Denies wheezing GI Denies change in bowel habits and Denies heartburn Musc Details: sees Dr Mittal Reports arthralgias and Denies joint swelling Skin/Breast Denies breast swelling, Denies breast pain, Denies breast mass and Reports rash (right lower leg) Neuro Reports no additional complaints, Reports Normal hearing present, Denies dizziness, Denies headache(s) and Denies Sensory deficit (Neuro) Psych Reports no additional complaints Endo Reports no additional complaints Billy/Lymph Reports no additional complaints Aller/Immun Denies wheezing Physical exam (Primary Care) Vital Signs: Last Vital Signs Pulse 81 09/07/24 13:18 BP 104/70 09/07/24 13:18 Pulse Ox 98 09/07/24 13:18 Oxygen Delivery Method Room Air 09/07/24 13:18 BMI result Body Mass Index 37.3 Tobacco/Smoking Status: Tobacco use Status Tobacco use date assessed 09/07/24 09/07/24 13:16 Patient Tobacco Use Status Never used Tobacco 09/07/24 13:16 e-Cigarette/Vaping Use Never Used 09/07/24 13:16 PHQ-9: PHQ-9 Score PHQ-9: Total score 3 09/07/24 14:18 Depression Screening Interpretation: Negative Thrive Assessment: Date of Thrive Assessment Date Thrive assessed 09/07/24 09/07/24 13:26 Currently or been in a relationship where the following occur: No concerns reported Advance Care Planning discussion: Completed/Scanned Date of discussion: 09/07/24 Who was present: patient Forms completed: Health Care Proxy Time spent: 16-45 minutes Actual minutes spent: 3 Const General: cooperative, no acute distress and alert Orientation/consciousness: patient oriented x3 HENMT Head: Yes normal to inspection, Yes normocephalic and Yes atraumatic Ears: hearing grossly normal bilaterally, external ears normal, TM's normal bilaterally and EAC's normal General nose exam: Normal external nose present, Normal nasal mucous membranes and turbinates present and No nasal discharge present Face and sinus: Yes normal facial exam, Yes sinuses nontender and Yes face symmetric Mouth: Normal oral and palatal mucosa present, tongue normal, oropharynx normal and moist mucous membranes Eyes Conjunctivae: conjunctivae normal Sclerae: sclerae normal Pupils: Equal, round and reactive pupils present EOM: EOMs intact bilaterally Neck Neck: Yes full ROM and Yes no lymphadenopathy Thyroid: Thyroid normal Carotids: normal carotid upstroke Chest Chest palpation & inspection: normal inspection of the chest Breast/axilla palpation: normal palpation of the breasts Resp Effort & Inspection: normal respiratory effort and able to speak in complete sentences Auscultation: clear to auscultation bilaterally Cardio Jugular venous distension: no JVD Rate: regular rate Rhythm: regular rhythm Heart sounds: S1 normal heart sound present and S2 normal heart sound present GI Inspection: Yes normal to inspection Palpation (GI): Soft to palpation, nontender, no guarding and no masses Auscultation: normal bowel sounds General: Yes no CVA tenderness Back/Spine/Pelvis Back: no CVA tenderness and No back tenderness Skin Other: hyperpigmented slightly raised patch on proximal aspect of right lower leg General skin exam: no rashes or lesions noted Neuro General: patient oriented x3, gait normal, moves all extremities, no focal motor deficits and CN's II-XI intact bilaterally Cranial nerves: Yes Equal, round and reactive pupils present and Yes Normal hearing present Cognition (Neuro): normal cognition Gait exam (Neuro): Normal gait present Motor exam (neuro): 5/5 motor strength present throughout Sensory Exam: No Sensory deficit (Neuro) Extrem General: Yes normal to inspection, Yes full ROM, Yes no pedal edema and Yes normal gait Psych Appearance: grossly normal and well kempt Mental Status: mental status grossly normal Speech and movement: Normal speech and movement present Affect: normal affect Thought process: Normal thought process present Coding Level of Care Code Est Pt Prev Care 18-39y(73086) Diagnoses Mixed anxiety and depressive disorder F41.8 Acquired hypothyroidism E03.9 Annual visit for general adult medical examination with abnormal findings Z00. Uveitis of left eye H20.9 Pituitary adenoma D35.2 Nut allergy Z91.018 Ankylosing spondylitis M45.9 HLA B27 positive Z15.89 Advanced directives, counseling/discussion Z71.89 Lichen amyloidosis E85.4; L99 Additional Codes Vital Signs *Quality* - Advance Care Planning discussion: Completed/Scanned ([id number]) Vital Signs *Quality* - Time spent: 16-45 minutes ([id number]) PHQ-9 - 44171 - PHQ-9 Billing: Yes ([id number]) RACHEL-7 Assessment Billing - RACHEL-7 Assessment Tool: RACHEL-7 Assessment [id number] ([id number]) Assessment & Plan Assessment & Plan (1) Mixed anxiety and depressive disorder: Code(s): F41.8 - Other specified anxiety disorders Category: Medical (2) Acquired hypothyroidism: Code(s): E03.9 - Hypothyroidism, unspecified Category: Medical (3) Annual visit for general adult medical examination with abnormal findings: Code(s): Z00.01 - Encounter for general adult medical examination with abnormal findings (4) Uveitis of left eye: Comment: followed by Dr Richardson Code(s): H20.9 - Unspecified iridocyclitis Category: Medical (5) Pituitary adenoma: Comment: followed by [facility] endocrine clinic Code(s): D35.2 - Benign neoplasm of pituitary gland Category: Medical (6) Nut allergy: Comment: Seen and evaluated by computerized machine fabric cutter Code(s): Z91.018 - Allergy to other foods Category: Medical (7) Ankylosing spondylitis: Comment: Followed by Dr. mittal Code(s): M45.9 - Ankylosing spondylitis of unspecified sites in spine Category: Medical (8) HLA B27 positive: Comment: Followed by Dr. Mittal Code(s): Z15.89 - Genetic susceptibility to other disease Category: Medical (9) Advanced directives, counseling/discussion: Code(s): Z71.89 - Other specified counseling (10) Lichen amyloidosis: Comment: seen by [facility] [place] [facility] Code(s): E85.4 - Organ-limited amyloidosis; L99 - Other disorders of skin and subcutaneous tissue in diseases classified elsewhere Category: Medical Plan - Seasonal Allergies: Continue avoidance of allergens. Epipen available for emergency use. - Hyperlipidemia: Emphasize dietary modifications and planned re-evaluation with repeat lipid panel. - Hypothyroidism: Continue current dose of levothyroxine and schedule follow-up thyroid function tests. - Anxiety: Maintain current dosage of buspirone with psychiatric follow-up. - Pituitary Adenoma: Continue care with endocrinology; follow-up imaging as per immigration guard. - Cutaneous Amyloidosis: Continue topical steroids as needed; monitor for changes. - Continue health maintenance and screening as discussed. Patient was informed and verbally consented to the use of an ambient scribe for clinic note documentation during this visit. Orders: Orders Lipid Panel 09/07/24 E03.9 - Hypothyroidism, unspecified, F41.8 - Other specified anxiety disorders, Z00.01 - Encounter for general adult medical examination with abnormal findings, Z13.1 - Encounter for screening for diabetes mellitus, Z53.20 - Procedure and treatment not carried out because of patient's decision for unspecified reasons, Z71.89 - Other specified counseling Free T4 (Free Thyroxine) 09/07/24 E03.9 - Hypothyroidism, unspecified, F41.8 - Other specified anxiety disorders, Z00.01 - Encounter for general adult medical examination with abnormal findings, Z13.1 - Encounter for screening for diabetes mellitus, Z53.20 - Procedure and treatment not carried out because of patient's decision for unspecified reasons, Z71.89 - Other specified counseling Vitamin D 25-OH Total 09/07/24 E03.9 - Hypothyroidism, unspecified, F41.8 - Other specified anxiety disorders, Z00.01 - Encounter for general adult medical examination with abnormal findings, Z13.1 - Encounter for screening for diabetes mellitus, Z53.20 - Procedure and treatment not carried out because of patient's decision for unspecified reasons, Z71.89 - Other specified counseling Glucose Fasting 09/07/24 E03.9 - Hypothyroidism, unspecified, F41.8 - Other specified anxiety disorders, Z00.01 - Encounter for general adult medical examination with abnormal findings, Z13.1 - Encounter for screening for diabetes mellitus, Z53.20 - Procedure and treatment not carried out because of patient's decision for unspecified reasons Thyroid Stimulating Hormone 09/07/24 E03.9 - Hypothyroidism, unspecified, F41.8 - Other specified anxiety disorders, Z00.01 - Encounter for general adult medical examination with abnormal findings, Z13.1 - Encounter for screening for diabetes mellitus, Z53.20 - Procedure and treatment not carried out because of patient's decision for unspecified reasons, Z71.89 - Other specified counseling Thyroid Peroxidase Antibodies 09/07/24 E03.9 - Hypothyroidism, unspecified, F41.8 - Other specified anxiety disorders, Z00.01 - Encounter for general adult medical examination with abnormal findings, Z13.1 - Encounter for screening for diabetes mellitus, Z53.20 - Procedure and treatment not carried out because of patient's decision for unspecified reasons, Z71.89 - Other specified counseling Medications: Refilled levothyroxine 75 mcg PO QAM 90 tabs 3RF buspirone 5 mg PO BID 3 months 180 tabs 3RF F41.8 - Other specified anxiety disorders
[2024-09-07 13:18] VITALS: BP 104/70; PULSE 81; O2SAT 98; BMI 37.3
== END 2024-09-07 14:18 | disposition home or self-care (01) ==
PROVIDERS: PCP Internal Medicine; Visit Provider Internal Medicine
DX: Z00.01 Encounter for general adult medical examination with abnormal findings (principal); F41.8 Other specified anxiety disorders; E03.9 Hypothyroidism, unspecified; H20.9 Unspecified iridocyclitis; D35.2 Benign neoplasm of pituitary gland; Z91.018 Allergy to other foods; M45.9 Ankylosing spondylitis of unspecified sites in spine; Z15.89 Genetic susceptibility to other disease; Z71.89 Other specified counseling; E85.4 Organ-limited amyloidosis; L99 Other disorders of skin and subcutaneous tissue in diseases classified elsewhere; Z00.00 Encounter for general adult medical examination without abnormal findings

== ENCOUNTER → 2024-09-07 13:14 | Outpatient (BNVA) | payer OTHER, SELFPAY | PROVIDERS: PCP Internal Medicine; Visit Provider Internal Medicine | DX: Z00.01 Encounter for general adult medical examination with abnormal findings (principal); F41.8 Other specified anxiety disorders; E03.9 Hypothyroidism, unspecified; H20.9 Unspecified iridocyclitis; D35.2 Benign neoplasm of pituitary gland; M45.9 Ankylosing spondylitis of unspecified sites in spine; E85.4 Organ-limited amyloidosis; L99 Other disorders of skin and subcutaneous tissue in diseases classified elsewhere; Z91.018 Allergy to other foods; Z15.89 Genetic susceptibility to other disease; Z71.89 Other specified counseling | CPT/HCPCS: 96127 ==

== ENCOUNTER 2024-09-10 10:38 | Outpatient (REF) | payer OTHER, SELFPAY ==
[2024-09-10 11:52] LABS: Cholesterol 191 mg/dL (<200); Glucose Fasting 85 mg/dL (60-99); HDL Cholesterol 84 mg/dL (>40); LDL Cholesterol Calculated 87 mg/dL (<100); Triglycerides 101 mg/dL (<150)
[2024-09-10 12:08] LABS: Free T4 (Free Thyroxine) 0.89 ng/dL (0.71-1.85); Thyroid Stimulating Hormone 2.08 uIU/mL (0.32-4.0); Vitamin D 25-OH Total 45.1 ng/mL (>30)
[2024-09-12 12:44] LABS: Thyroid Peroxidase Antibodies <1 IU/mL (<9)
== END 2024-09-10 10:39 | disposition home or self-care (01) ==
LOC: HO.HMGCLDS 10:38
PROVIDERS: PCP Internal Medicine; Visit Provider Internal Medicine
DX: Z00.01 Encounter for general adult medical examination with abnormal findings (principal); E03.9 Hypothyroidism, unspecified; Z71.89 Other specified counseling; F41.8 Other specified anxiety disorders; Z13.1 Encounter for screening for diabetes mellitus; Z53.20 Procedure and treatment not carried out because of patient's decision for unspecified reasons
CPT/HCPCS: 36415; 80061; 82306; 82947; 84439; 84443; 86376

== ENCOUNTER 2025-10-11 14:54 | Outpatient (AMB) | payer OTHER, SELFPAY ==
[2025-10-11 14:58] VITALS: BP 108/62; PULSE 67; TEMP 36.7; O2SAT 98; BMI 37.0
--- NOTE | 2025-10-11 14:58 | A.OFFPC_ITS ---
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: No Allergies peanut Allergy (Unknown, Verified 10/11/25 14:59) Anaphylaxis tree nut Allergy (Unknown, Verified 10/11/25 14:59) Anaphylaxis Medication List - Last Reconciled 10/11/25 by Nery Ho MD buspirone 5 mg PO BID 3 months cabergoline 2.5 mg PO QWEEK cetirizine 10 mg PO BEDTIME PRN cholecalciferol (vitamin D3) 50 mcg PO DAILY desogestrel-ethinyl estradiol 0.15-0.03 mg 1 tab PO DAILY epinephrine (EpiPen 2-Molina) 0.3 mg (0.3 mL) IM Q4H PRN fluconazole mg PO QWEEK folic acid 1 mg PO DAILY levothyroxine 75 mcg PO QAM methotrexate sodium 15 mg PO QWEEK multivitamin 1 tab PO DAILY Saccharomyces boulardii (Daily Probiotic (S. boulardii)) 250 mg PO BID Tobacco use date assessed: 10/11/25 Dental Screening Dental Screen Date: 10/11/25 Did you have a dental visit in the last 12 months?: Yes Did you have a dental problem in the last 6 months where you did not have access to dental care?: No Was dental information given to patient?: Patient has dentist [facility] Medical History Lichen amyloidosis Mixed anxiety and depressive disorder Uveitis of left eye Pituitary adenoma Anaphylactic reaction due to tree nuts and seeds Environmental and seasonal allergies Nut allergy Acquired hypothyroidism Acute anterior uveitis of left eye Ankylosing spondylitis Spondyloarthropathy HLA B27 positive Acute sinusitis with coexisting condition, need prophylactic treatment Surgical History History of left cataract surgery Family History Father Essential hypertension Bipolar disorder Mental health disorder Mother Essential hypertension Rheumatoid arthritis Cholelithiasis Maternal Grandmother Breast cancer Brother Asthma Maternal Grandfather Glioblastoma Brain cancer Paternal Grandfather Colon cancer Diabetes Social History Housing: Apartment Alcohol intake: current Patient Tobacco Use Status: Never used Tobacco e-Cigarette/Vaping Use: Never Used service: No Current occupational status: employed Cognitive needs: No Hearing needs: No Vision needs: Yes Questionnaire PHQ-9 Over the last 2 weeks, how often have you been bothered by any of the following problems? 1. Little interest or pleasure in doing things: not at all 2. Feeling down, depressed, or hopeless: not at all 3. Trouble falling or staying asleep, or sleeping too much: several days 4. Feeling tired or having little energy: several days 5. Poor appetite or overeating: several days 6. Feeling bad about yourself - or that you are a failure or have let yourself or your family down: not at all 7. Trouble concentrating on things, such as reading the newspaper or watching television: not at all 8. Moving or speaking so slowly that other people could have noticed. Or the opposite - being so fidgety or restless that you have been moving around a lot more than usual: not at all 9. Thoughts that you would be better off or of hurting yourself in some way: not at all Total score: 3 Depression Screening Interpretation: Negative Depression Screening Done: Yes 35195 - PHQ-9 Billing: Yes Source: Developed by Drs. Dmitry Cruz, Carli Maravilla, Baldemar Gamez and colleagues, with an educational glen from [employer]. Thrive Questionnaire Date Thrive assessed: 10/11/25 I am a: Patient What is your living situation today?: I have a steady place to live Within the past 12 months, did the food you bought not last and you didn't have the money to get more?: Never true Within the past 12 months, did you worry whether your food would run out before you got money to buy more?: Never true Do you have trouble paying for medicines?: No Do you have trouble getting transportation to medical appointments?: No Do you have trouble paying your heating and electricity bill?: No Do you have trouble taking care of your child, family member or friend?: No Do you have trouble with day-to-day activities such as bathing, preparing meals, shopping, managing finances, etc.?: No Are you currently unemployed and looking for a job?: No Are you interested in more education?: No Please select the resources that you would like help with: None Currently or been in a relationship where the following occur: No concerns reported THRIVE Score: 0 AUDIT C Alcohol Use Questionnaire (AUDIT-C) 1. How often do you have a drink containing alcohol?: Monthly or less 2. How many drinks containing alcohol do you have on a typical day when you are drinking?: 1 or 2 3. How often do you have six or more drinks on one occasion?: Never Total Score: 1 Score Reviewed/Action Taken: Yes RACHEL-7 AMB Questionnaire RACHEL-7 Date RACHEL - 7 assessed: 10/11/25 Feeling nervous, anxious, or on edge: 1 = Several days Not being able to stop or control worryin = Several days Worrying too much about different things: 1 = Several days Trouble relaxin = Several days Being so restless that it is hard to sit still: 0 = Not at all Becoming easily annoyed or irritable: 0 = Not at all Feeling afraid as if something awful might happen: 0 = Not at all Total RACHEL-7 score (0-4 normal; 5-9 mild; 10-14 moderate; 15-21 severe): 4 Source: Developed by Drs. Dmitry rCuz, Carli Maravilla, Baldemar Gamez and colleagues, with an educational glen from [employer]. RACHEL-7 Assessment Billing RACHEL-7 Assessment Tool: RACHEL-7 Assessment 99403 Physical exam (Primary Care) Vital Signs: Last Vital Signs Temp 98.1 F 10/11/25 14:58 Pulse 67 10/11/25 14:58 BP 108/62 10/11/25 14:58 Pulse Ox 98 10/11/25 14:58 Oxygen Delivery Method Room Air 10/11/25 14:58 BMI result Body Mass Index 37.0 Tobacco/Smoking Status: Tobacco use Status Tobacco use date assessed 10/11/25 10/11/25 15:02 Patient Tobacco Use Status Never used Tobacco 10/11/25 15:02 e-Cigarette/Vaping Use Never Used 10/11/25 15:02 PHQ-9: PHQ-9 Score PHQ-9: Total score 3 10/11/25 16:10 Depression Screening Interpretation: Negative Thrive Assessment: Date of Thrive Assessment Date Thrive assessed 10/11/25 10/11/25 15:02 Currently or been in a relationship where the following occur: No concerns reported Office Procedures Flu Questionnaire Does the patient have a severe egg allergy?: No Does the patient have severe life threatening allergies?: No Does the patient have a fever or illness today?: No Has the patient ever had Guillain-Ridge Syndrome?: No Has the patient ever had any past reaction to a flu shot?: No Immunizations Fluarix 5137-1350 (PF) 45 mcg (15 mcg x 3)/0.5 mL IM syringe Performing Provider: Nery Ho MD Performing Location: [facility] Administered by: Pedro Pablo Gonzalez CMA on 10/11/25 16:11 Dose Route Admin Location Dispensed Lot Number Expiration Date NDC Pick Up Worker 0.5 mL IM Left Deltoid 0.5 mL [id number] 04/10/26 [id number] [employer] VIS Given Date VIS Provided VIS Publication Date 10/11/25 Single Vaccine 24 Eligibility Eligibility Date Funding Source Not [facility] Eligible 10/11/25 Private Coding Diagnoses Anaphylactic reaction due to tree nuts and seeds T78.05XA Mixed anxiety and depressive disorder F41.8 Acquired hypothyroidism E03.9 Pituitary adenoma D35.2 Environmental and seasonal allergies J30.89 Ankylosing spondylitis M45.9 Right wrist pain M25.531 Annual visit for general adult medical examination with abnormal findings Z00.01 Additional Codes RACHEL-7 Assessment Billing - RACHEL-7 Assessment Tool: RACHEL-7 Assessment 01399 ([id number]) PHQ-9 - 57178 - PHQ-9 Billing: Yes ([id number]) Assessment & Plan Assessment & Plan (1) Anaphylactic reaction due to tree nuts and seeds: Code(s): T78.05XA - Anaphylactic reaction due to tree nuts and seeds, initial encounter Category: Medical (2) Mixed anxiety and depressive disorder: Code(s): F41.8 - Other specified anxiety disorders Category: Medical (3) Acquired hypothyroidism: Code(s): E03.9 - Hypothyroidism, unspecified Category: Medical (4) Pituitary adenoma: Comment: followed by [facility] endocrine clinic Code(s): D35.2 - Benign neoplasm of pituitary gland Category: Medical (5) Environmental and seasonal allergies: Code(s): J30.89 - Other allergic rhinitis Category: Medical (6) Ankylosing spondylitis: Comment: Followed by Dr. vora Code(s): M45.9 - Ankylosing spondylitis of unspecified sites in spine Category: Medical (7) Right wrist pain: Code(s): M25.531 - Pain in right wrist Plan: Advised trial of either diclofenac gel 0 0.1% or Advil ointment, which are both available [id number], to apply to affected area 2 to 3 times a day as needed for joint pain (8) Annual visit for general adult medical examination with abnormal findings: Code(s): Z00.01 - Encounter for general adult medical examination with abnormal findings Plan: Flu vaccine given Orders: Orders Influenza [id number] Immunization Today Z23 - Encounter for immunization Complete Blood Count Auto Diff Today D35.2 - Benign neoplasm of pituitary gland, E03.9 - Hypothyroidism, unspecified, M45.9 - Ankylosing spondylitis of unspecified sites in spine, Z13.1 - Encounter for screening for diabetes mellitus, Z13.220 - Encounter for screening for lipoid disorders Lipid Panel Today D35.2 - Benign neoplasm of pituitary gland, E03.9 - Hypothyroidism, unspecified, M45.9 - Ankylosing spondylitis of unspecified sites in spine, Z13.1 - Encounter for screening for diabetes mellitus, Z13.220 - Encounter for screening for lipoid disorders Triiodothyronine T3 Free Today D35.2 - Benign neoplasm of pituitary gland, E03.9 - Hypothyroidism, unspecified, M45.9 - Ankylosing spondylitis of unspecified sites in spine, Z13.1 - Encounter for screening for diabetes mellit us, Z13.220 - Encounter for screening for lipoid disorders Comprehensive [place]. Panel Fast Today D35.2 - Benign neoplasm of pituitary gland, E03.9 - Hypothyroidism, unspecified, M45.9 - Ankylosing spondylitis of unspecified sites in spine, Z13.1 - Encounter for screening for diabetes mellitus, Z13.220 - Encounter for screening for lipoid disorders Thyroid Stimulating Hormone Today D35.2 - Benign neoplasm of pituitary gland, E03.9 - Hypothyroidism, unspecified, M45.9 - Ankylosing spondylitis of unspecified sites in spine, Z13.1 - Encounter for screening for diabetes mellitus, Z13.220 - Encounter for screening for lipoid disorders Free T4 (Free Thyroxine) Today D35.2 - Benign neoplasm of pituitary gland, E03.9 - Hypothyroidism, unspecified, M45.9 - Ankylosing spondylitis of unspecified sites in spine, Z13.1 - Encounter for screening for diabetes mellitus, Z13.220 - Encounter for screening for lipoid disorders Vitamin D 25-OH Total Today D35.2 - Benign neoplasm of pituitary gland, E03.9 - Hypothyroidism, unspecified, M45.9 - Ankylosing spondylitis of unspecified sites in spine, Z13.1 - Encounter for screening for diabetes mellitus, Z13.220 - Encounter for screening for lipoid disorders Medications: New trazodone 50 mg PO BEDTIME PRN 30 tabs 0RF sleep difficulties Refilled levothyroxine 75 mcg PO QAM 90 tabs 3RF
--- OUTSIDE RECORDS SUMMARY | 2025-10-11 15:49 | XMS_ITS | Encounter Summary ---
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 Name Role Phone Nery Ho MD Primary Care Provider Reason for Visit * Reason Onset Date Comments Appointment 07/12/2025 F/U with new pro vider Encounter Details Date Type Department Care Team (Late st Contact Info) Description 07/12/2025 Telephone [facility] [address] [place] [address] Unknown, Unknown, MD Appointment (F/U with new provider ) Social History Tobacco Use Types Packs/Day Years Used Date Smoking Tobacco: Never Smokeless Tobacco: Never Alcohol Use Standard Drinks/Week Comments Yes 0 (1 standard drink = 0.6 oz pur e alcohol) occasionally Education Answer Date Recorded Are you interested in more education? Not on dimitris e 04/24/2023 Are you concerned about learning? Not on file 04/24/2023 No 04/24/2023 No 04/24/2023 Digital Access Answer Date Recorded No 04/24/2023 No 04/24/2023 Reliable internet access at home? Not on file 04/24/2023 Device with a working camera? 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 documented in this encounter Plan of Treatment Upcoming Encounters Date Type Department Care Team (Late st Contact Info) Description 10/19/2025 2:00 PM EST Office Visit [facility] [address] [place] [address] Darlene Maravilla DO [address] [facility], [address] [place] [address] [email or web address] documented as of this encounter Visit Diagnoses Not on filedocumented in this encounter Care Teams Wagon Drill Operator Relationship Specialty Start Date End Date Nery Ho MD [address] [place] [address] PCP - General Internal Medicine 04/17/23 documented as of this encounter Additional Source Comments The information contained in this document represents components of the legal health record. It is not the complete legal health record.[facility]
--- OUTSIDE RECORDS SUMMARY | 2025-10-11 15:49 | XMS_ITS | Clinical Summary ---
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 04/16/20 23 Active cabergoline (DOSTINEX) 0.5 mg tablet TAKE 1/2 TABLET BY MOUTH WEEKLY 05/28/20 23 Active APRI 0.15-0.03 mg per tablet Take 1 tablet by mouth every morning. 04/29/20 23 Active EPINEPHrine 0.3 mg/0.3 mL auto-injector 07/05/20 23 Active cetirizine (ZYRTEC) 10 MG tablet Take 1 tablet by mouth daily. 04/09/20 23 Active busPIRone (BUSPAR) 5 MG tablet Take 1 tablet by mouth 2 (two) times a day. 03/24/20 24 Active cyclobenzaprine (FLEXERIL) 5 MG tabletIndications:Lumba r paraspinal muscle spasm Take 2 tablets (10 mg total) by mouth nightly at bedtime as needed (muscle spasm). 60 tablet 01/27/20 25 Active methotrexate 2.5 MG Oral tabletIndications:HLA-B 27 spondyloarthropathy Take 6 tablets (15 mg total) by mouth every 7 days. 72 tablet 07/19/20 25 Active folic acid (FOLVITE) 1 MG tabletIndications:HLA-B 27 spondyloarthropathy Take 1 tablet (1 mg total) by mouth every morning. 90 tablet 1 07/19/20 25 Active Active Problems Problem Noted Date Diagnosed Date HLA-B27 spondyloarthropathy 09/23/2023 Assessment & Plan (07/19/2025 2:48 PM EDT): Update blood work as above Continue methotrexate 15 mg once per week. Folic acid 1 mg/day. 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 She has no stiffness or swelling and no recent flares of uveitis. Her eye exams are current and normal. Sent her for some labs. Assessment & Plan (10/16/2023 4:41 PM EST): HLA-B27 mediated spondyloarthropathy with associated uveitis currently stable on methotrexate 6 tablets weekly and daily folic acid. She has not had any recent flares of uveitis. She follows regularly with Dr. Anderson. I asked Dr. Anderson to send me his most recent office note. Will send her for some labs today which she will have done at [facility]. We discussed her reproductive future and she said she might possibly be planning a . I stressed to her that she needs to come completely off methotrexate for a minimum of 4 months before she conceives. If we need to treat her during the some options might be Plaquenil, sulfasalazine or azathioprine. Spasm 09/23/2023 Assessment & Plan (02/28/2024 5:54 PM EDT): Occasional low back spasms for which she takes cyclobenzaprine as needed. Advised low back stretches. Assessment & Plan (10/16/2023 4:42 PM EST): She has chronic low back muscle spasms. I sent in a prescription for Flexeril to be taken only as needed. Advised daily stretching exercises. Encounters Date Type Department Care Team Description 08/08/2025 5:02 PM EDT - 08/08/2025 11:59 PM EDT Hospital Encounter [facility], X-Ray - [facility] [address] [place] [address] Darlene Maravilla, DO Discharge Disposition: Home or Self Care 07/19/2025 2:34 PM EDT - 07/19/2025 11:59 PM EDT Hospital Encounter [facility] [place] [address] Darlene Maravilla, Discharge Disposition: Home or Self Care 07/19/2025 2:00 PM EDT Office Visit [facility] [address] [place] [address] Darlene Maravilla, DO HLA-B27 spondyloarthropathy (Primary Dx); Lumbar paraspinal muscle spasm; Uveitis of left eye; High risk medications (not anticoagulants) long-term use; Immunosuppression due to drug therapy; Spasm 07/12/2025 Telephone [facility] [address] [place] [address] Unknown, Unknown, MD Appointment (F/U with new provider ) from Last 3 Months Family History Medical History Relation Comments No Known Problems Brother Bipolar disorder Father Hypertension Father Arthritis Mother Relation Status Comments Brother Alive Father Alive Mother Alive Social History Tobacco Use Types Packs/Day Years Used Date Smoking Tobacco: Never Smokeless Tobacco: Never Tobacco Cessation:Counseling Given: Not Answered Alcohol Use Standard Drinks/Week Comments Yes 0 [...] on file Sexual Orientation Not on file Last Filed Vital Signs Vital Sign Reading Time Taken Comments Blood Pressure 114/66 07/19/2025 1:59 PM EDT Pulse 64 07/19/2025 1:59 PM EDT Temperature - - Respiratory Rate - - Oxygen Saturation 99% 07/19/2025 1:59 PM EDT Inhaled Oxygen Concentration - - Weight 101.3 kg (223 lb 6.4 oz) 07/19/2025 1:59 PM EDT Height 165.1 cm (5' 5 ) 05/26/2024 12:4 9 PM EDT Body Mass Index 37.18 05/26/2024 12:49 PM EDT Plan of Treatment Upcoming Encounters Date Type Department Care Team (Late st Contact Info) Description 10/19/2025 2:00 PM EST Office Visit [facility] [address] [place] [address] Darlene Maravilla, [address] [facility], [address] [place] [address] [email or web address] Health Maintenance Due Date Last Done Comments TSH LEVEL 1986 DEPRESSION SCREENING 1998 HEPATITIS C SCREENING 2004 HIV ONE-TIME SCREENING (18-65 YEARS) 2004 PNEUMOCOCCAL VACCINES (0-49 years) (1 of 2 - PCV) 2005 PAP SMEAR 2007 INFLUENZA VACCINE (#1) 2025 , 06/17/2024, 07/07/2023, Additional history exists COVID-19 VACCINE (2024- season) 2025 06/17/2024, 07/13/2023, 08/13/2021, Additional history exists Adult Td,Tdap Booster 04/15/2026 04/15/2016 SCREENING FOR DIABETES 04/27/2028 04/27/2025 HEPATITIS A VACCINES Aged Out 10/17/2008 No long er eligible based on patient's age to complete this topic SMOKING STATUS SCREENING (Once After 26 Yrs) Completed 07/19/2025 HIB VACCINES Aged Out No longer eligi ble based on patient's age to complete this topic MENINGOCOCCAL VACCINES (ACWY) Aged Out No longer eligible based on patient's age to complete this topic MENINGOCOCCAL VACCINES (B) Aged Out N o longer eligible based on patient's age to complete this topic Medical Devices Not on file Procedures Procedure Name Priority Date/Time Associated Diagnosis Comments XR SACROILIAC JOINTS 3 OR MORE VIEWS Routine 08/08/2025 5:19 PM EDT HLA-B27 spondyloarthropath y Lumbar paraspinal muscle spasm Uveitis of left eye C-REACTIVE PROTEIN (CRP) Routine 025 2:35 PM EDT HLA-B27 spondyloarthropath y Lumbar paraspinal muscle spasm Uveitis of left eye SEDIMENTATION RATE (ESR) Routine 025 2:35 PM EDT HLA-B27 spondyloarthropath y Lumbar paraspinal muscle spasm Uveitis of left eye CREATININE WITH ESTIMATED GLOMERULAR FILTRATION RATE (EGFR) Routine 07/19/2025 2:35 PM EDT HLA-B27 spondyloarthropath y Lumbar paraspinal muscle spasm Uveitis of left eye BUN Routine 07/19/2025 2:35 PM EDT HLA-B27 spondyloarthropath y Lumbar paraspinal muscle spasm Uveitis of left eye ALANINE AMINOTRANSFERASE (ALT) Routine 07/19/2025 2:35 PM EDT HLA-B27 spondyloarthropath y Lumbar paraspinal muscle spasm Uveitis of left eye ASPARTATE AMINOTRANSFERASE (AST) Routine 07/19/2025 2:35 PM EDT HLA-B27 spondyloarthropath y Lumbar paraspinal muscle spasm Uveitis of left eye CBC AND DIFFERENTIAL Routine 07/19/2025 2:35 PM EDT HLA-B27 spondyloarthropath y Lumbar paraspinal muscle spasm Uveitis of left eye HLA-B27, BLOOD Routine 07/19/2025 2:35 PM EDT HLA-B27 spondyloarthropath y Lumbar paraspinal muscle spasm Uveitis of left eye from Last 3 Months Results * XR SACROILIAC JOINTS 3 OR MORE VIEWS (08/08/2025 5:19 PM EDT) Anatomical Region Laterality Modality Pelvis Computed Radiogr aphy 08/09/2025 4:31 PM EDT Impressions 08/09/2025 4:33 PM EDT No evidence of inflammatory disease. No displaced fracture or dislocation. Narrative 08/09/2025 4:33 PM EDT XR SACROILIAC JOINTS 3 OR MORE VIEWS COMPARISON: None FINDINGS: No displaced fracture. Intact sacroiliac joints. No sacroiliitis. Procedure Note Swapnil South MD, MELVINA - 08/09/2025 XR SACROILIAC JOINTS 3 OR MORE VIEWS COMPARISON: None FINDINGS: No displaced fracture. Intact sacroiliac joints. No sacroiliitis. IMPRESSION: No evidence of inflammatory disease. No displaced fracture or dislocation. us Darlene Maravilla DO IMG XR PELVIS Final Resu lt * Creatinine/eGFR (07/19/2025 2:35 PM EDT) Pathologist [facility] CREATININE 0.70 0.5 - 1.5 mg/dL [facility] EGFR 113 >59 mL/min/1.7 3m2 [facility] Comment:Estimated glomerular filtration rate calculated using the CKD-EPI refit equation. Blood 07/19/2025 2:35 PM EDT 07/19/2025 2:41 PM EDT us Darlene Maravilla DO LAB BLOOD BKR ORDERABLES F inal Result [facility] [address] [place] [address] * HLA-B27, BLOOD (07/19/2025 2:35 PM EDT) Pathologist [facility] HLA-B27 RESULT Positive Not Applicable [facility] DPT OF LAB MED AND PAT+ INTERPRETATION SEE NOTE [facility] DPT OF LAB MED AND PAT+ Comment: (NOTE) HLA-B27 antigen was detected. Approximately 8% of the normal population carries the HLA-B27 antigen. HLA-B27 is present in approximately 89% of patients with ankylosing spondylitis, 79% of patients with reactive arthritis, and 42% of patients with juvenile rheumatoid arthritis. However, lacking other data, it is not diagnostic for these disorders. This test does not differentiate B27 alleles. i.e. B*27:05, B*27:06, etc. ADDITIONAL INFORMATION Method: Flow Cytometry CLIA: [id number] CLIA Guest Specialist: GENA COCHRAN,Ph.D. Blood 07/19/2025 2:35 PM EDT 07/19/2025 2:41 PM EDT Darlene Maravilla DO LAB BLOOD ORDERABLES Final Result [facility] DPT OF LAB MED AND PAT+ [address] [place] [address] * Sedimentation rate (ESR) (07/19/2025 2:35 PM EDT) ESR 16 0 - 20 mm/h [facility] Blood 07/19/2025 2:35 PM EDT 07/19/2025 2:41 PM EDT Darlene Maravilla DO LAB BLOOD BKR ORDERABLES F inal Result [facility] [address] [place] [address] * CBC and differential (07/19/2025 2:35 PM EDT) WBC 9.14 4.00 - 11.00 K/uL [facility] RBC 4.36 4.00 - 5.20 M/uL [facility] HGB 13.0 12.0 - 16.0 g/dL [facility] HCT 39.2 36.0 - 46.0 % [facility] PLT 396 150 - 450 K/uL [facility] MCV 89.9 80.0 - 100.0 fL [facility] MCH 29.8 27.0 - 31.0 pg [facility] MCHC 33.2 32.0 - 36.0 g/dL [facility] RDW 13.2 11.5 - 14.5 % [facility] MPV 10.5 8.4 - 12.0 fL [facility] NRBC 0.00 0.00 /100 WBCs [facility] ABSOLUTE NRBC 0.00 0.00 K/uL [facility] DIFF METHOD Auto [facility] NEUTS 53.2 48.0 - 76.0 % [facility] LYMPHS 39.4 18.0 - 41.0 % [facility] MONOS 4.2 4.0 - 11.0 % [facility] EOS 2.4 0.0 - 5.0 % [facility] BASOS 0.5 0.0 - 1.5 % [facility] Granulocytes, immature (%) 0.3 0.0 - 0.9 % [facility] ABSOLUTE NEUTS 4.86 1.92 - 7.60 K/uL [facility] ABSOLUTE LYMPHS 3.60 0.72 - 4.10 K/uL [facility] ABSOLUTE MONOS 0.38 0.16 - 1.10 K/uL [facility] ABSOLUTE EOS 0.22 0.00 - 0.50 K/uL [facility] ABSOLUTE BASOS 0.05 0.00 - 0.15 K/uL [facility] Granulocytes, immature 0.03 0.00 - 0.09 K/uL [facility] Blood 07/19/2025 2:35 PM EDT 07/19/2025 2:41 PM EDT us Darlene Maravilla DO LAB BLOOD BKR ORDERABLES F inal Result [facility] [address] [place] [address] * (ABNORMAL) C-Reactive Protein (07/19/2025 2:35 PM EDT) C REACTIVE PROTEIN 12.8(H) 0.0 - 4.0 mg/L [facility] Blood 07/19/2025 2:35 PM EDT 07/19/2025 2:41 PM EDT us Darlene Maravilla DO LAB BLOOD BKR ORDERABLES F inal Result Performing Organization Address City/[facility]/ZIP Co de Phone Number [address] [address] * BUN (07/19/2025 2:35 PM EDT) BUN 8 6 - 19 mg/dL [facility] Blood 07/19/2025 2:35 PM EDT 07/19/2025 2:41 PM EDT us Darlene Maravilla DO LAB BLOOD BKR ORDERABLES F inal Result Performing Organization Address [facility] Co de Phone Number [address] [address] * Alanine aminotransferase (ALT) (07/19/2025 2:35 PM EDT) ALT 10 0 - 40 U/L [facility] Blood 07/19/2025 2:35 PM EDT 07/19/2025 2:41 PM EDT us Darlene Maravilla DO LAB BLOOD BKR ORDERABLES F inal Result Performing Organization Address [facility] Co de Phone Number [address] [address] * Aspartate aminotransferase (AST) (07/19/2025 2:35 PM EDT) AST 20 0 - 37 U/L [facility] Blood 07/19/2025 2:35 PM EDT 07/19/2025 2:41 PM EDT us Darlene Maravilla DO LAB BLOOD BKR ORDERABLES F inal Result [address] [address] from Last 3 Months [facility] [address] [place] [address] [facility] Care Teams [employer] Relationship Specialty Start Date End Date Nery Ho MD [facility] [address], [place] [address] PCP - General Internal Medicine 04/17/23 Additional Source Comments The information contained in this document represents components of the legal health record. It is not the complete legal health record.[facility]
--- OUTSIDE RECORDS SUMMARY | 2025-10-11 15:49 | XMS_ITS | Patient Health Record ---
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 Name Role Phone MARTHA KRISHNA Primary Care Provider JOSE ARMANDO Molina Unavailable [phone] Allergies Allergen (clinical drug ingredient) Drug/Non Drug Allergy documented on EMR Reaction Allergy Type Onset Date Status NUTS (uncoded) anaphylaxis Allergy Act ojhn STEROID REACTOR (uncoded) prolonged use causes rise in eye pressure Allergy Active Reason For Referral No Information Medications Medication SIG (Take, Route, Frequency, Duration) Notes Start Date End Date Status Folic Acid 1 MG Tablet 1 tab(s) orally o nce a day; Duration: 90 days Active Methotrexate 2.5 MG Tablet 6 tabs orally once a week; Duration: 90 days Active Cyclobenzaprine HCl 10 MG Tablet 1 tab(s) orally bid prn 10/29/2021 Acti ve Cabergoline 0.5 MG Tablet 1/2 tab orally once a week Active Calcium 600+D 600-200 MG-UNI T Tablet 1 tab(s) orally once daily Active Cetirizine HCl 10 MG Tablet 1 tab(s) ora lly once a day prn Active Desogestrel-Ethinyl Estradio l 0.15-30 MG-MCG Tablet 1 tab(s) orally once a day Active Multivitamin - Tablet 1 tab(s) orally daily Active Levothyroxine Sodium 75 MCG Tablet 1 tab(s) orally once a day Active PROBIOTICS 1 CAP(S) ORALLY ONCE DAILY Active Immunizations Vaccine Route Administration Date Status Comme nts Influenza, Fluzone Quad.5 ml, IM Intramuscular 09/26/2016 Administered Influenza, Fluzone QUAD, 3+ yrs, IM Intramuscular 07/15/2018 Administered Social History Tobacco Use: Social History Observation Description Date Details (start date - stop date) Never Smoker NA - NA Social History Tobacco Use: Social Info Question Answer Notes Smoking Are you a: never smoker Additional Details Category Social Info Options Details 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: no Past year's travels: none / alcohol use: yes occasionally drug use: no Hobbies/Exercise habits: paintin g, exercise, walking, hand weights Coffee/Tea/Soda: yes 1 cup of coffee a day and 1-2 cups of tea a day,no soda Marital Status single experience no Living with boyfriend Pets 2 cats smokers in household no pt never sm denise Problems Problem Type SNOMED Code ICD Code Onset Dates Problem Status W/U Status Risk Notes Problem Medication monitoring (244283158) Medication monitoring encounter (Z51.81) Active confirmed Problem Vaccination given (245837764) Encounter for immunization (Z23) Active confirmed Problem Muscle spasm (16991926) Muscle spasm (M62.838) Active confirmed Problem Spondylosis without myelopathy (39144195) HLA-B27 spondyloarthropathy (M47.899) Active confirmed Problem 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 Plan Of Treatment Pending Test Test Name Order Date AST ( SGOT) 06/20/2021 ALT(DO NOT USE) 06/20/2021 AST ( SGOT) 10/29/2021 ALT(DO NOT USE) 10/29/2021 AST ( SGOT) 02/27/2022 ALT(DO NOT USE) 02/27/2022 AST ( SGOT) 07/03/2022 ALT(DO NOT USE) 07/03/2022 Future Test Test Name Order Date ESR 11/04/2022 ALBUMIN 11/04/2022 AST ( SGOT) 11/04/2022 CREATININE 11/04/2022 CRP 11/04/2022 CBC W/ AUTOMATED DIFF 11/04/2022 ELECTROLYTES 11/04/2022 ALT (SGPT) 11/04/2022 Insurance Providers Payer Name Payer Address Payer Phone Subscriber Number Group Number Insured Name Patient Relationship to Insured Coverage Start Date Coverage End Date [facility] [address] [place] [id number] DIXON DILLARD Self - patient is the insured 6 Medical (General) History Medical History History ICD Code recurrent iritis headaches psoriasis G0 pituitary adenoma PCOS Surgical History Surgery Date(Month/Year)
== END 2025-10-11 16:11 | disposition home or self-care (01) ==
LOC: HO.HMCC 14:55
PROVIDERS: PCP Internal Medicine; Visit Provider Internal Medicine
DX: Z23 Encounter for immunization (principal)

== ENCOUNTER → 2025-10-11 14:54 | Outpatient (BNVA) | payer OTHER, SELFPAY | PROVIDERS: PCP Internal Medicine; Visit Provider Internal Medicine | DX: Z00.01 Encounter for general adult medical examination with abnormal findings (principal); M45.8 Ankylosing spondylitis sacral and sacrococcygeal region; M25.531 Pain in right wrist; F41.8 Other specified anxiety disorders; E03.9 Hypothyroidism, unspecified; Z13.1 Encounter for screening for diabetes mellitus; Z23 Encounter for immunization; Z13.31 Encounter for screening for depression; Z13.39 Encounter for screening examination for other mental health and behavioral disorders; Z71.89 Other specified counseling; D35.2 Benign neoplasm of pituitary gland; Z13.220 Encounter for screening for lipoid disorders; Z79.890 Hormone replacement therapy | CPT/HCPCS: 90471; 90656; 96127 ==